=== PATIENT | male | born 1995 | race Caucasian/White ===

== ENCOUNTER 2020-07-05 17:19 | Emergency (ER) | payer OTHER ==
[2020-07-05 17:42] VITALS: RESP 18
[2020-07-05] MEDS ORDERED: SODIUM CHLORIDE 0.9% 1,000 ML IV STA (17:51)
[2020-07-05] MEDS ORDERED: ONDANSETRON 4 MG/2 ML VIAL IVP STA (17:52)
[2020-07-05 18:32] LABS: Basophils # (A) 0.1 k/uL (0-0.2); Basophils % (A) 1 %; Eosinophils # (A) 0.3 k/uL (0-0.7); Eosinophils % (A) 2 %; HCT 45.5 % (39.0-53.0); HGB 15.4 gm/dL (13.0-17.5); Lymphocytes # (A) 1.1 k/uL (1.0-4.8); Lymphocytes % (A) 7 %; MCH 28.5 pg (25.0-35.0); MCHC 33.9 g/dL (31.0-37.0); Mean Platelet Volume 8.4; Monocytes # (A) 0.9 k/uL (0-1.0); Monocytes % (A) 6 %; Neutrophils # (A) 12.9 k/uL (1.3-7.7); Neutrophils % (A) 84 %; Platelet Count 158 k/uL (150-450); RBC 5.42 m/uL (4.30-5.90); RDW 13.7 % (11.5-15.5); WBC 15.3 k/uL (3.8-10.6)
[2020-07-05] MEDS ORDERED: KETOROLAC 15 MG/ML 1 ML VIAL IVP STA (18:32)
--- NOTE | 2020-07-05 18:36 | ED ---
Abdominal Pain HPI - General Chief Complaint: Abdominal Pain Stated Complaint: abd pain Time Seen by Provider: 07/05/20 17:51 Source: patient Mode of arrival: ambulatory Limitations: no limitations - History of Present Illness Initial Comments: Patient is 25-year-old male presenting to the emergency department with a chief complaint of abdominal pain. Patient reports 2 days ago he ate some "raw chicken" from Dr. Tariff And developed epigastric pain. Patient states most the pain is located between the epigastric and the umbilicus. States it "feels like the muscle is tight". Patient reports he had nausea with multiple episodes of nonbilious and nonbloody vomiting. Denies any diarrhea. Denies any night sweats fevers or chills. Denies any chest pain or shortness of breath. - Related Data Previous Rx's Medication Instructions Recorded Pantoprazole Sodium [Protonix] 40 mg PO DAILY #10 tablet. 07/05/20 Allergies Allergy/AdvReac Type Severity Reaction Status Date / Time prednisone Allergy Unknown Verified 07/05/20 17:42 Review of Systems ROS Statement: Those systems with pertinent positive or pertinent negative responses have been documented in the HPI. ROS Other: All systems not noted in ROS Statement are negative. Past Medical History Past Medical History: No Reported History History of Any Multi-Drug Resistant Organisms: None Reported Past Surgical History: Orthopedic Surgery Additional Past Surgical History / Comment(s): Left testical removed Past Psychological History: No Psychological Hx Reported Smoking Status: Current every day smoker Past Alcohol Use History: None Reported Past Drug Use History: None Reported General Exam Limitations: no limitations General appearance: alert, in no apparent distress Head exam: Present: atraumatic, normocephalic, normal inspection Eye exam: Present: normal appearance, PERRL, EOMI Pupils: Present: normal accommodation ENT exam: Present: normal exam, normal oropharynx, mucous membranes moist, TM's normal bilaterally, normal external ear exam Neck exam: Present: normal inspection, full ROM. Absent: tenderness Respiratory exam: Present: normal lung sounds bilaterally. Absent: respiratory distress, wheezes, rales Cardiovascular Exam: Present: regular rate, normal rhythm, normal heart sounds GI/Abdominal exam: Present: soft, tenderness (Epigastric abdominal pain.), normal bowel sounds. Absent: distended, guarding, rebound, rigid Extremities exam: Present: normal inspection, full ROM. Absent: tenderness Back exam: Present: normal inspection, full ROM. Absent: tenderness, CVA tenderness (R), CVA tenderness (L) Neurological exam: Present: alert, oriented X3 Psychiatric exam: Present: normal affect, normal mood Skin exam: Present: warm, dry, intact, normal color Course Vital Signs 07/05/20 07/05/20 07/05/20 17:39 18:50 21:02 Temperature 99.1 F 98.1 F Pulse Rate 114 H 104 H 94 Respiratory 18 18 18 Rate Blood Pressure 164/81 134/89 122/86 O2 Sat by Pulse 98 97 98 Oximetry Medical Decision Making - Medical Decision Making Patient is 25-year-old male presenting to the emergency department with a chief complaint of abdominal pain. On initial evaluation, patient does have epigastr ic abdominal tenderness. CBC reveals leukocytosis. CMP and UA are unremarkable. CT of abdomen and pelvis reveals wall thickening and fat stranding and edema centered along the first and second portions of the duodenum. This can be correlated for duodenitis or peptic ulcer disease. Some fat straining is also noted around the pancreas which would indicate acute interstitial pancreatitis isn't alternate correlation. Clinically, this does not correlate as well as the lipase levels do not indicate pancreatitis. Patient is not a heavy drinker. Patient started on analgesics, IV fluids, antiemetics and Protonix. Patient will be discharged with Protonix and advised to follow with a GI specialist. Strict return parameters were thoroughly discussed with patient was understanding and agreeable. Case discussed with physician. - Lab Data Result diagrams: 07/05/20 18:14 07/05/20 18:14 Lab Results 07/05/20 07/05/20 07/05/20 Range/Units 18:14 18:14 18:44 WBC 15.3 H (3.8-10.6) k/uL RBC 5.42 (4.30-5.90) m/uL Hgb 15.4 (13.0-17.5) gm/dL Hct 45.5 (39.0-53.0) % MCV 84.0 (80.0-100.0) fL MCH 28.5 (25.0-35.0) pg MCHC 33.9 (31.0-37.0) g/dL RDW 13.7 (11.5-15.5) % Plt Count 158 (150-450) k/uL Neutrophils % 84 % Lymphocytes % 7 % Monocytes % 6 % Eosinophils % 2 % Basophils % 1 % Neutrophils # 12.9 H (1.3-7.7) k/uL Lymphocytes # 1.1 (1.0-4.8) k/uL Monocytes # 0.9 (0-1.0) k/uL Eosinophils # 0.3 (0-0.7) k/uL Basophils # 0.1 (0-0.2) k/uL Sodium 136 L (137-145) mmol/L Potassium 4.5 (3.5-5.1) mmol/L Chloride 102 (98-107) mmol/L Carbon Dioxide 24 (22-30) mmol/L Anion Gap 10 mmol/L BUN 9 (9-20) mg/dL Creatinine 0.81 (0.66-1.25) mg/dL Est GFR (CKD-EPI)AfAm >90 (>60 ml/min/1.73 sqM) Est GFR (CKD-EPI)NonAf >90 (>60 ml/min/1.73 sqM) Glucose 191 H (74-99) mg/dL Calcium 9.7 (8.4-10.2) mg/dL Total Bilirubin 1.2 (0.2-1.3) mg/dL AST 54 (17-59) U/L ALT 50 H (4-49) U/L Alkaline Phosphatase 85 (38-126) U/L Total Protein 7.8 (6.3-8.2) g/dL Albumin 4.4 (3.5-5.0) g/dL Lipase 300 (23-300) U/L Urine Color Yellow Urine Appearance Clear (Clear) Urine pH 5.5 (5.0-8.0) Ur Specific [place] 1.015 (1.001-1.035) Urine Protein Trace H (Negative) Urine Glucose (UA) Negative (Negative) Urine Ketones Negative (Negative) Urine Blood Negative (Negative) Urine Nitrite Negative (Negative) Urine Bilirubin Negative (Negative) Urine Urobilinogen <2.0 (<2.0) mg/dL Ur Leukocyte Esterase Negative (Negative) Disposition Clinical Impression: Duodenitis, Abdominal pain Disposition: HOME SELF-CARE Condition: Stable Instructions (If sedation given, give patient instructions): Peptic Ulcer (ED), Abdominal Pain (ED) Additional Instructions: Follow-up with a GI specialist. Take prescribed medication as directed. Do not drink alcohol, coffee, any acidic foods. Return to emergency department if symptoms worsen. Do not take ibuprofen. Prescriptions: Pantoprazole Sodium [Protonix] 40 mg PO DAILY #10 tablet.dr Is patient prescribed a controlled substance at d/c from ED?: No Referrals: None,Stated [Primary Care Provider] - 1-2 days Didi Sousa MD [STAFF PHYSICIAN] - 1-2 days Time of Disposition: 20:32
[2020-07-05 18:42] LABS: ALT 50 U/L (4-49); AST 54 U/L (17-59); African American GFR (CKD) >90 (>60 ml/min/1.73 sqM); Albumin 4.4 g/dL (3.5-5.0); Alkaline Phosphatase 85 U/L (38-126); Anion Gap 10 mmol/L; Blood Urea Nitrogen 9 mg/dL (9-20); Calcium 9.7 mg/dL (8.4-10.2); Carbon Dioxide 24 mmol/L (22-30); Chloride 102 mmol/L (98-107); Glucose 191 mg/dL (74-99); Non-African American GFR(CKD) >90 (>60 ml/min/1.73 sqM); Potassium 4.5 mmol/L (3.5-5.1); Sodium 136 mmol/L (137-145); Total Bilirubin 1.2 mg/dL (0.2-1.3); Total Protein 7.8 g/dL (6.3-8.2)
[2020-07-05 18:58] LABS: Appearance,Urine Clear (Clear); Bilirubin,Urine Negative (Negative); Blood,Urine Negative (Negative); Color,Urine Yellow; Glucose,Urine (UA) Negative (Negative); Ketones,Urine Negative (Negative); Leukocyte Esterase,Urine Negative (Negative); Nitrite,Urine Negative (Negative); PH, Urine 5.5 (5.0-8.0); Protein,Urine Trace (Negative); Specific Gravity,Urine 1.015 (1.001-1.035); Urobilinogen,Urine <2.0 mg/dL (<2.0)
--- NOTE | 2020-07-05 19:20 | CT ---
EXAMINATION TYPE: CT abdomen pelvis w con DATE OF EXAM: 07/05/2020 COMPARISON: NONE HISTORY: 25-year-old male with epigastric and abdominal pain TECHNIQUE: Contiguous axial scanning of the abdomen and pelvis following administration of 100 ml Iso antonino 300 IV contrast. Delayed images through the kidneys and coronal/sagittal reconstructions perform ed. CT DLP: 1560.6 mGycm Automated exposure control for dose reduction was used. FINDINGS: LUNG BASES: No significant abnormality is appreciated. LIVER/GB: Liver enlarged measuring 26.6 cm with diffuse low-attenuation. Portal venous system is jerez nt. No biliary ductal dilatation. Gallbladder within normal limits. PANCREAS: Wall thickening and fat stranding centered along the first and second portions of the duode num and some hazy peripancreatic density as well. Stranding tracks down the retroperitoneum. Scattered nonenlarged mesenteric lymph nodes. Adrenal glands, kidneys within normal limits. Spleen enlarged measuring 17.1 cm on coronal series. No dilated small bowel, free fluid, free air. Scattered mild stool. No pericolonic inflammatory change. Appendix not seen. No secondary findings of acute appendicitis. Mild circumferential bladder wall thickening. There seems to be a left testicular prosthesis. Clinically correlate. No abnormal fluid collection in the pelvis or pelvic lymphadenopathy. Bones: Scattered mild degenerative disc disease throughout. IMPRESSION: 1. WALL THICKENING AND SURROUNDING FAT STRANDING AND EDEMA CENTERED ALONG THE FIRST AND SECOND PORTIO NS OF THE DUODENUM. CORRELATE FOR DUODENITIS OR PEPTIC ULCER DISEASE. 2. SOME OF THE FAT STRANDING SURROUNDS PORTIONS OF THE PANCREAS. ACUTE INTERSTITIAL PANCREATITIS WOUL D BE THE ALTERNATIVE CONSIDERATION. INFLAMMATORY EDEMA TRACKS DOWN THE RETROPERITONEUM. NO ABNORMAL F LUID COLLECTION. 3. HEPATOSPLENOMEGALY (LIVER 26.6 CM AND SPLEEN 17.1 CM) ALONG WITH MODERATE TO SEVERE HEPATIC STEATO SIS. 4. CIRCUMFERENTIAL BLADDER WALL THICKENING. CORRELATE FOR CYSTITIS. 5. LEFT TESTICULAR PROSTHESIS.
[2020-07-05] MEDS ORDERED: PANTOPRAZOLE 40 MG/10 ML VIAL IVP STA (20:30)
[2020-07-05] MEDS ORDERED: ACET/COD 300 MG/30 MG STARTER PACK 6 TAB BTL PO STA (20:30)
[2020-07-05 21:04] VITALS: BP 122/86; PULSE 94; TEMP 98.1
== END 2020-07-05 21:03 | disposition home or self-care (01) ==
LOC: EC 17:19
DX: K29.80 Duodenitis without bleeding (principal); D72.829 Elevated white blood cell count, unspecified; F17.200 Nicotine dependence, unspecified, uncomplicated; Z88.8 Allergy status to other drugs, medicaments and biological substances
CPT/HCPCS: 36415; 80053; 83690; 85025; 81003; 74177; 99284; 96374; 96375 ×2; 96361 ×2; J2405; J1885; C9113; Q9967

== ENCOUNTER 2020-07-06 17:44 | Emergency (ER) | payer OTHER ==
[2020-07-06 17:52] VITALS: TEMP 98.2
[2020-07-06] MEDS ORDERED: SODIUM CHLORIDE 0.9% 1,000 ML IV STA (18:34)
[2020-07-06] MEDS ORDERED: ONDANSETRON 4 MG/2 ML VIAL IVP STA (18:34)
[2020-07-06] MEDS ORDERED: HYDROmorphone 0.5 MG/0.5 ML SYRINGE IVP STA ×3 (18:34→21:27)
[2020-07-06 19:02] LABS: Basophils # (A) 0.1 k/uL (0-0.2); Basophils % (A) 1 %; Eosinophils # (A) 0.2 k/uL (0-0.7); Eosinophils % (A) 1 %; HCT 41.3 % (39.0-53.0); HGB 13.7 gm/dL (13.0-17.5); Lymphocytes # (A) 1.3 k/uL (1.0-4.8); Lymphocytes % (A) 9 %; MCH 28.3 pg (25.0-35.0); MCV 85.6 fL (80.0-100.0); Mean Platelet Volume 8.4; Monocytes # (A) 0.9 k/uL (0-1.0); Monocytes % (A) 6 %; Neutrophils # (A) 11.4 k/uL (1.3-7.7); Neutrophils % (A) 81 %; Platelet Count 145 k/uL (150-450); RBC 4.83 m/uL (4.30-5.90); RDW 13.9 % (11.5-15.5); WBC 14.1 k/uL (3.8-10.6)
[2020-07-06 19:08] LABS: Appearance,Urine Cloudy (Clear); Bacteria,Urine Rare /hpf; Bilirubin,Urine Negative (Negative); Blood,Urine Negative (Negative); Color,Urine Yellow; Glucose,Urine (UA) Negative (Negative); Ketones,Urine Negative (Negative); Leukocyte Esterase,Urine Negative (Negative); Mucus,Urine Many /hpf; Nitrite,Urine Negative (Negative); PH, Urine 5.5 (5.0-8.0); Protein,Urine 1+ (Negative); RBC,Urine 1 /hpf (0-5); Specific Gravity,Urine 1.025 (1.001-1.035); Squamous Epithelial Cell,Urine <1 /hpf (0-4); Urobilinogen,Urine <2.0 mg/dL (<2.0); WBC,Urine 7 /hpf (0-5)
[2020-07-06 19:11] LABS: ALT 33 U/L (4-49); AST 40 U/L (17-59); African American GFR (CKD) >90 (>60 ml/min/1.73 sqM); Albumin 3.9 g/dL (3.5-5.0); Alkaline Phosphatase 73 U/L (38-126); Amylase 41 U/L (30-110); Anion Gap 11 mmol/L; Blood Urea Nitrogen 9 mg/dL (9-20); Calcium 9.2 mg/dL (8.4-10.2); Carbon Dioxide 25 mmol/L (22-30); Chloride 101 mmol/L (98-107); Glucose 174 mg/dL (74-99); Non-African American GFR(CKD) >90 (>60 ml/min/1.73 sqM); Potassium 4.1 mmol/L (3.5-5.1); Sodium 137 mmol/L (137-145); Total Protein 6.8 g/dL (6.3-8.2)
--- NOTE | 2020-07-06 19:23 | ED ---
General Adult HPI - General Chief complaint: Abdominal Pain Stated complaint: recheck - abd pain, vomiting Time Seen by Provider: 07/06/20 18:01 Source: patient, RN notes reviewed Mode of arrival: ambulatory Limitations: no limitations - History of Present Illness Initial comments: 25-year-old male with a past medical history peptic ulcer disease presents to the emergency room for upper abdominal pain. Patient reports that he was seen here in the emergency room yesterday. States that he was discharged home with of likely peptic ulcer and felt much better. However a few hours after he got home pain has worsened and has been vomiting since that time. He is unable to keep his pain medications down. He did try to take Zofran and it did not help. States the pain is worse today than yesterday.Patient has no other complaints at this time including shortness of breath, chest pain, nausea or vomiting, headache, or visual changes. - Related Data Previous Rx's Medication Instructions Recorded Pantoprazole Sodium [Protonix] 40 mg PO DAILY #10 tablet. 07/05/20 HYDROcodone/APAP 5-325MG [[place] 1 tab PO Q6HR PRN #6 tab 07/06/20 5-325] Allergies Allergy/AdvReac Type Severity Reaction Status Date / Time prednisone Allergy hyperglycem Verified 07/06/20 17:53 ia Review of Systems ROS Statement: Those systems with pertinent positive or pertinent negative responses have been documented in the HPI. ROS Other: All systems not noted in ROS Statement are negative. Past Medical History Past Medical History: No Reported History Additional Past Medical History / Comment(s): peptic ulcer, History of Any Multi-Drug Resistant Organisms: None Reported Past Surgical History: Orthopedic Surgery Additional Past Surgical History / Comment(s): Left testical removed, Past Psychological History: No Psychological Hx Reported Smoking Status: Current every day smoker Past Alcohol Use History: Occasional Past Drug Use History: None Reported General Exam Limitations: no limitations General appearance: alert, in no apparent distress Head exam: Present: atraumatic, normocephalic, normal inspection Eye exam: Present: normal appearance, PERRL, EOMI. Absent: scleral icterus, conjunctival injection, periorbital swelling ENT exam: Present: normal exam, mucous membranes moist Neck exam: Present: normal inspection, full ROM. Absent: tenderness, meningismus, lymphadenopathy Respiratory exam: Present: normal lung sounds bilaterally. Absent: respiratory distress, wheezes, rales, rhonchi, stridor Cardiovascular Exam: Present: regular rate, normal rhythm, normal heart sounds. Absent: systolic murmur, diastolic murmur, rubs, gallop, clicks GI/Abdominal exam: Present: soft, tenderness (Epigastric and right upper quadrant tenderness), normal bowel sounds. Absent: distended, guarding, rebound, rigid Course Vital Signs 07/06/20 07/06/20 17:49 20:12 Temperature 98.2 F Pulse Rate 115 H 103 H Respiratory 18 16 Rate Blood Pressure 110/63 126/75 O2 Sat by Pulse 96 97 Oximetry Medical Decision Making - Medical Decision Making Vitals are stable. CBC is unremarkable. Leukocytosis is improving. CMP is unremarkable. Lactic acid of 2.5 likely related to dehydration. Glucose of 174 is nonfasting. Urinalysis is unremarkable. Ketones are negative. There is no glucose in the urine. No obvious evidence of infection although culture will be sent. CT abdomen and pelvis with contrast was reviewed from yesterday which did show evidence of duodenitis and peptic ulcer disease. Ultrasound of the right upper quadrant today showed sludge in the gallbladder however no evidence of cholecystitis. X-ray of the abdomen does not show evidence of free air. Patient's pain is controlled with Dilaudid. He did request another dose before discharged home so he could sleep tonight. He did not vomit here in the emergency room. He does have an appointment tomorrow morning with his primary c are physician. If he has any worsening symptoms or fevers he will return here to the emergency room.I discussed this case with attending Dr. Alvarez who agrees with this assessment and treatment plan. - Lab Data Result diagrams: 07/06/20 18:48 07/06/20 18:48 Lab Results 07/06/20 07/06/20 07/06/20 Range/Units 18:48 18:48 18:48 WBC 14.1 H (3.8-10.6) k/uL RBC 4.83 (4.30-5.90) m/uL Hgb 13.7 (13.0-17.5) gm/dL Hct 41.3 (39.0-53.0) % MCV 85.6 (80.0-100.0) fL MCH 28.3 (25.0-35.0) pg MCHC 33.0 (31.0-37.0) g/dL RDW 13.9 (11.5-15.5) % Plt Count 145 L (150-450) k/uL Neutrophils % 81 % Lymphocytes % 9 % Monocytes % 6 % Eosinophils % 1 % Basophils % 1 % Neutrophils # 11.4 H (1.3-7.7) k/uL Lymphocytes # 1.3 (1.0-4.8) k/uL Monocytes # 0.9 (0-1.0) k/uL Eosinophils # 0.2 (0-0.7) k/uL Basophils # 0.1 (0-0.2) k/uL Sodium 137 (137-145) mmol/L Potassium 4.1 (3.5-5.1) mmol/L Chloride 101 (98-107) mmol/L Carbon Dioxide 25 (22-30) mmol/L Anion Gap 11 mmol/L BUN 9 (9-20) mg/dL Creatinine 0.89 (0.66-1.25) mg/dL Est GFR (CKD-EPI)AfAm >90 (>60 ml/min/1.73 sqM) Est GFR (CKD-EPI)NonAf >90 (>60 ml/min/1.73 sqM) Glucose 174 H (74-99) mg/dL Plasma Lactic Acid Dinesh (0.7-2.0) mmol/L Calcium 9.2 (8.4-10.2) mg/dL Total Bilirubin 1.0 (0.2-1.3) mg/dL AST 40 (17-59) U/L ALT 33 (4-49) U/L Alkaline Phosphatase 73 (38-126) U/L Total Protein 6.8 (6.3-8.2) g/dL Albumin 3.9 (3.5-5.0) g/dL Amylase 41 (30-110) U/L Lipase 224 (23-300) U/L Urine Color Yellow Urine Appearance Cloudy (Clear) Urine pH 5.5 (5.0-8.0) Ur Specific [place] 1.025 (1.001-1.035) Urine Protein 1+ H (Negative) Urine Glucose (UA) Negative (Negative) Urine Ketones Negative (Negative) Urine Blood Negative (Negative) Urine Nitrite Negative (Negative) Urine Bilirubin Negative (Negative) Urine Urobilinogen <2.0 (<2.0) mg/dL Ur Leukocyte Esterase Negative (Negative) Urine RBC 1 (0-5) /hpf Urine WBC 7 H (0-5) /hpf Ur Squamous Epith Cells <1 (0-4) /hpf Urine Bacteria Rare H (None) /hpf Urine Mucus Many H (None) /hpf 07/06/20 Range/Units 18:48 WBC (3.8-10.6) k/uL RBC (4.30-5.90) m/uL Hgb (13.0-17.5) gm/dL Hct (39.0-53.0) % MCV (80.0-100.0) fL MCH (25.0-35.0) pg MCHC (31.0-37.0) g/dL RDW (11.5-15.5) % Plt Count (150-450) k/uL Neutrophils % % Lymphocytes % % Monocytes % % Eosinophils % % Basophils % % Neutrophils # (1.3-7.7) k/uL Lymphocytes # (1.0-4.8) k/uL Monocytes # (0-1.0) k/uL Eosinophils # (0-0.7) k/uL Basophils # (0-0.2) k/uL Sodium (137-145) mmol/L Potassium (3.5-5.1) mmol/L Chloride (98-107) mmol/L Carbon Dioxide (22-30) mmol/L Anion Gap mmol/L BUN (9-20) mg/dL Creatinine (0.66-1.25) mg/dL Est GFR (CKD-EPI)AfAm (>60 ml/min/1.73 sqM) Est GFR (CKD-EPI)NonAf (>60 ml/min/1.73 sqM) Glucose (74-99) mg/dL Plasma Lactic Acid Dinesh 2.5 H* (0.7-2.0) mmol/L Calcium (8.4-10.2) mg/dL Total Bilirubin (0.2-1.3) mg/dL AST (17-59) U/L ALT (4-49) U/L Alkaline Phosphatase (38-126) U/L Total Protein (6.3-8.2) g/dL Albumin (3.5-5.0) g/dL Amylase (30-110) U/L Lipase (23-300) U/L Urine Color Urine Appearance (Clear) Urine pH (5.0-8.0) Ur Specific [place] (1.001-1.035) Urine Protein (Negative) Urine Glucose (UA) (Negative) Urine Ketones (Negative) Urine Blood (Negative) Urine Nitrite (Negative) Urine Bilirubin (Negative) Urine Urobilinogen (<2.0) mg/dL Ur Leukocyte Esterase (Negative) Urine RBC (0-5) /hpf Urine WBC (0-5) /hpf Ur Squamous Epith Cells (0-4) /hpf Urine Bacteria (None) /hpf Urine Mucus (None) /hpf Disposition Clinical Impression: Duodenitis, Abdominal pain Disposition: HOME SELF-CARE Condition: Good Instructions (If sedation given, give patient instructions): Abdominal Pain (ED) Additional Instructions: Please continue to take Protonix. Attend your appointment tomorrow morning. Take [place] if pain is severe but do not drive or operate machinery while taking this. Return to the emergency room for any worsening symptoms. Prescriptions: HYDROcodone/APAP 5-325MG [[place] 5-325] 1 tab PO Q6HR PRN #6 tab PRN Reason: Pain Is patient prescribed a controlled substance at d/c from ED?: Yes When asked, does pt state using other controlled substances?: No If prescribed controlled substance>3 days was MAPS reviewed?: Prescribed <3 Days If opioid is for acute pain is fill amount 7 days or less?: Yes If Rx opioid, was Start Talking consent form obtained?: Yes Referrals: Didi Sousa MD [STAFF PHYSICIAN] - 1-2 days Time of Disposition: 21:23
--- NOTE | 2020-07-06 19:53 | XR ---
EXAMINATION TYPE: XR KUB DATE OF EXAM: 07/06/2020 COMPARISON: None INDICATION: Pain epigastric x3 days TECHNIQUE: Single view abdomen upright views the abdomen FINDINGS: Is a normal colonic bowel gas pattern. No free air is evident. No differential air-fluid levels are p resent Psoas margins are normal. Borderline hepatomegaly may be present. IMPRESSION: 1. Correlate for hepatomegaly.
--- NOTE | 2020-07-06 20:52 | US ---
EXAMINATION TYPE: US abdomen limited DATE OF EXAM: 07/06/2020 COMPARISON: CT CLINICAL HISTORY: ruq. Abdominal pain x 3 days. Vomiting. EXAM MEASUREMENTS: Liver Length: 26.0 cm Gallbladder Wall: 0.2 cm CBD: 0.39 cm Right Kidney: 11.7 x 6.1 x 4.6 cm Pancreas: Not well seen due to overlying bowel gas. Liver: Appears to be enlarged and to have an increased echogenicity. Increased attenuation, difficul t to penetrate. Hypoechoic area seen adjacent to the gallbladder (suggestive of focal fatty sparing?) , measurin.4 x 1.1 x 0.9 cm. Gallbladder: Measures 3.6 cm in width. Minimal internal echoes seen versus artifact. Evidence for sonographic Gallardo's sign: No CBD: Appears wnl Right Kidney: No hydronephrosis or masses seen IMPRESSION: 1. May be some sludge within the gallbladder. 2. Fatty infiltration liver
[2020-07-06 21:40] VITALS: BP 144/87; PULSE 91; RESP 18
== END 2020-07-06 21:40 | disposition home or self-care (01) ==
LOC: EC 17:44
DX: K29.80 Duodenitis without bleeding (principal); K27.9 Peptic ulcer, site unspecified, unspecified as acute or chronic, without hemorrhage or perforation; D72.829 Elevated white blood cell count, unspecified; F17.200 Nicotine dependence, unspecified, uncomplicated; Z88.8 Allergy status to other drugs, medicaments and biological substances
CPT/HCPCS: 36415; 80053; 82150; 83605; 83690; 85025; 81001; 74018; 76705; 99284; 96374; 96375; 96376 ×2; 96361; J2405; J1170

== ENCOUNTER 2021-02-28 08:46 | Inpatient (IN) | payer BC, OTHER ==
[2021-02-28] MEDS ORDERED: MORPHINE SULFATE 4 MG/ML SYRINGE IV STA (09:01)
[2021-02-28] MEDS ORDERED: PANTOPRAZOLE 40 MG/10 ML VIAL IVP STA (09:01)
[2021-02-28] MEDS ORDERED: SODIUM CHLORIDE 0.9% 1,000 ML IV STA (09:01)
--- NOTE | 2021-02-28 09:03 | ED ---
General Adult HPI - General Chief complaint: Abdominal Pain Stated complaint: Abd pain Time Seen by Provider: 02/28/21 08:52 Source: patient, RN notes reviewed, old records reviewed Mode of arrival: ambulatory Limitations: no limitations - History of Present Illness Initial comments: 25-year-old male presenting with epigastric abdominal pain. Patient's pain began this morning prior to arrival. He's had some nausea but no vomiting. He denies any change in his bowels. No diarrhea. No constipation. No dysuria or hematuria. No flank pain. Pain is predominantly epigastric and left upper quadrant. He states he had similar episode to this in the past and was diagnosed with peptic ulcer disease. He did not have GI follow-up at that time. - Related Data Home Medications Medication Instructions Recorded Confirmed No Known Home Medications 02/28/21 02/28/21 Allergies Allergy/AdvReac Type Severity Reaction Status Date / Time prednisone AdvReac hyperglycem Verified 02/28/21 12:19 ia Review of Systems ROS Statement: Those systems with pertinent positive or pertinent negative responses have been documented in the HPI. ROS Other: All systems not noted in ROS Statement are negative. Past Medical History Past Medical History: No Reported History Additional Past Medical History / Comment(s): peptic ulcer, History of Any Multi-Drug Resistant Organisms: None Reported Past Surgical History: Orthopedic Surgery Additional Past Surgical History / Comment(s): Left testical removed, Past Psychological History: No Psychological Hx Reported Smoking Status: Current every day smoker Past Alcohol Use History: Occasional Past Drug Use History: None Reported General Exam Limitations: no limitations General appearance: alert, in no apparent distress Head exam: Present: atraumatic, normocephalic Eye exam: Present: normal appearance, PERRL ENT exam: Present: normal exam Neck exam: Present: normal inspection. Absent: tenderness, meningismus Respiratory exam: Present: normal lung sounds bilaterally. Absent: respiratory distress, wheezes Cardiovascular Exam: Present: normal rhythm, tachycardia GI/Abdominal exam: Present: soft, tenderness. Absent: distended, guarding Extremities exam: Present: normal inspection, normal capillary refill. Absent: pedal edema, calf tenderness Neurological exam: Present: alert, oriented X3, CN II-XII intact. Absent: motor sensory deficit Psychiatric exam: Present: normal affect, normal mood Skin exam: Present: warm, dry, intact. Absent: cyanosis, diaphoretic Course Vital Signs 05/03/21 05/03/21 05/03/21 08:47 10:46 11:44 Temperature 97.8 F 99.0 F Pulse Rate 111 H 96 97 Respiratory 18 18 22 Rate Blood Pressure 161/123 165/112 166/96 O2 Sat by Pulse 97 97 95 Oximetry Medical Decision Making - Medical Decision Making 25-year-old male presenting with abdominal pain, epigastric pain. CBC within normal limits, he has a hyponatremia which is likely pseudohyponatremia secondary to elevated glucose. He has a elevated blood sugar 583 with no history of diabetes. Has a lactic acid of 3.8. His amylase is elevated and lipase is unable to be obtained at this time. He is given IV fluid, symptomatic control. CT is performed which shows an acute pancreatitis. Patient will be kept nothing by mouth. He will be admitted for IV hydration and symptom control. Case discussed with Dr. Mendez will admit. - Lab Data Result diagrams: 02/28/21 09:09 02/28/21 09:09 Lab Results 02/28/21 02/28/21 02/28/21 Range/Units 09:09 09:09 09:09 WBC 6.5 (3.8-10.6) k/uL RBC 5.56 (4.30-5.90) m/uL Hgb 16.1 (13.0-17.5) gm/dL Hct 45.8 (39.0-53.0) % MCV 82.3 (80.0-100.0) fL MCH 28.8 (25.0-35.0) pg MCHC 35.2 (31.0-37.0) g/dL RDW 14.7 (11.5-15.5) % Plt Count 160 (150-450) k/uL MPV 8.6 Neutrophils % 70 % Lymphocytes % 13 % Monocytes % 7 % Eosinophils % 6 % Basophils % 1 % Neutrophils # 4.5 (1.3-7.7) k/uL Lymphocytes # 0.9 L (1.0-4.8) k/uL Monocytes # 0.5 (0-1.0) k/uL Eosinophils # 0.4 (0-0.7) k/uL Basophils # 0.1 (0-0.2) k/uL Poikilocytosis Slight Sodium 127 L (137-145) mmol/L Potassium 5.1 (3.5-5.1) mmol/L Chloride 96 L (98-107) mmol/L Carbon Dioxide 17 L (22-30) mmol/L Anion Gap 14 mmol/L BUN 14 (9-20) mg/dL Creatinine 0.77 (0.66-1.25) mg/dL Est GFR (CKD-EPI)AfAm >90 (>60 ml/min/1.73 sqM) Est GFR (CKD-EPI)NonAf >90 (>60 ml/min/1.73 sqM) Glucose 583 H* (74-99) mg/dL Lactic Ac Sepsis Rflx Plasma Lactic Acid Dinesh (0.7-2.0) mmol/L Calcium 9.4 (8.4-10.2) mg/dL Total Bilirubin 0.8 (0.2-1.3) mg/dL AST 69 H (17-59) U/L ALT 39 (4-49) U/L Alkaline Phosphatase 107 (38-126) U/L Troponin I (0.000-0.034) ng/mL Total Protein 7.8 (6.3-8.2) g/dL Albumin 4.6 (3.5-5.0) g/dL Amylase 289 H (30-110) U/L Lipase Cancelled Urine Color Yellow Urine Appearance Clear (Clear) Urine pH 6.0 (5.0-8.0) Ur Specific [place] 1.036 H (1.001-1.035) Urine Protein 3+ H (Negative) Urine Glucose (UA) 4+ H (Negative) Urine Ketones Negative (Negative) Urine Blood Trace H (Negative) Urine Nitrite Negative (Negative) Urine Bilirubin Negative (Negative) Urine Urobilinogen <2.0 (<2.0) mg/dL Ur Leukocyte Esterase Negative (Negative) Urine RBC 1 (0-5) /hpf Urine WBC 2 (0-5) /hpf Ur Squamous Epith Cells <1 (0-4) /hpf Hyaline Casts 22 H (0-2) /lpf Urine Mucus Rare H (None) /hpf 02/28/21 02/28/21 02/28/21 Range/Units 09:09 09:09 09:55 WBC (3.8-10.6) k/uL RBC (4.30-5.90) m/uL Hgb (13.0-17.5) gm/dL Hct (39.0-53.0) % MCV (80.0-100.0) fL MCH (25.0-35.0) pg MCHC (31.0-37.0) g/dL RDW (11.5-15.5) % Plt Count (150-450) k/uL MPV Neutrophils % % Lymphocytes % % Monocytes % % Eosinophils % % Basophils % % Neutrophils # (1.3-7.7) k/uL Lymphocytes # (1.0-4.8) k/uL Monocytes # (0-1.0) k/uL Eosinophils # (0-0.7) k/uL Basophils # (0-0.2) k/uL Poikilocytosis Sodium (137-145) mmol/L Potassium (3.5-5.1) mmol/L Chloride (98-107) mmol/L Carbon Dioxide (22-30) mmol/L Anion Gap mmol/L BUN (9-20) mg/dL Creatinine (0.66-1.25) mg/dL Est GFR (CKD-EPI)AfAm (>60 ml/min/1.73 sqM) Est GFR (CKD-EPI)NonAf (>60 ml/min/1.73 sqM) Glucose (74-99) mg/dL Lactic Ac Sepsis Rflx Y Plasma Lactic Acid Dinesh 3.8 H* (0.7-2.0) mmol/L Calcium (8.4-10.2) mg/dL Total Bilirubin (0.2-1.3) mg/dL AST (17-59) U/L ALT (4-49) U/L Alkaline Phosphatase (38-126) U/L Troponin I <0.012 (0.000-0.034) ng/mL Total Protein (6.3-8.2) g/dL Albumin (3.5-5.0) g/dL Amylase (30-110) U/L Lipase Urine Color Urine Appearance (Clear) Urine pH (5.0-8.0) Ur Specific [place] (1.001-1.035) Urine Protein (Negative) Urine Glucose (UA) (Negative) Urine Ketones (Negative) Urine Blood (Negative) Urine Nitrite (Negative) Urine Bilirubin (Negative) Urine Urobilinogen (<2.0) mg/dL Ur Leukocyte Esterase (Negative) Urine RBC (0-5) /hpf Urine WBC (0-5) /hpf Ur Squamous Epith Cells (0-4) /hpf Hyaline Casts (0-2) /lpf Urine Mucus (None) /hpf 02/28/21 Range/Units 12:25 WBC (3.8-10.6) k/uL RBC (4.30-5.90) m/uL Hgb (13.0-17.5) gm/dL Hct (39.0-53.0) % MCV (80.0-100.0) fL MCH (25.0-35.0) pg MCHC (31.0-37.0) g/dL RDW (11.5-15.5) % Plt Count (150-450) k/uL MPV Neutrophils % % Lymphocytes % % Monocytes % % Eosinophils % % Basophils % % Neutrophils # (1.3-7.7) k/uL Lymphocytes # (1.0-4.8) k/uL Monocytes # (0-1.0) k/uL Eosinophils # (0-0.7) k/uL Basophils # (0-0.2) k/uL Poikilocytosis Sodium (137-145) mmol/L Potassium (3.5-5.1) mmol/L Chloride (98-107) mmol/L Carbon Dioxide (22-30) mmol/L Anion Gap mmol/L BUN (9-20) mg/dL Creatinine (0.66-1.25) mg/dL Est GFR (CKD-EPI)AfAm (>60 ml/min/1.73 sqM) Est GFR (CKD-EPI)NonAf (>60 ml/min/1.73 sqM) Glucose (74-99) mg/dL Lactic Ac Sepsis Rflx Plasma Lactic Acid Dinesh 1.5 (0.7-2.0) mmol/L Calcium (8.4-10.2) mg/dL Total Bilirubin (0.2-1.3) mg/dL AST (17-59) U/L ALT (4-49) U/L Alkaline Phosphatase (38-126) U/L Troponin I (0.000-0.034) ng/mL Total Protein (6.3-8.2) g/dL Albumin (3.5-5.0) g/dL Amylase (30-110) U/L Lipase Urine Color Urine Appearance (Clear) Urine pH (5.0-8.0) Ur Specific [place] (1.001-1.035) Urine Protein (Negative) Urine Glucose (UA) (Negative) Urine Ketones (Negative) Urine Blood (Negative) Urine Nitrite (Negative) Urine Bilirubin (Negative) Urine Urobilinogen (<2.0) mg/dL Ur Leukocyte Esterase (Negative) Urine RBC (0-5) /hpf Urine WBC (0-5) /hpf Ur Squamous Epith Cells (0-4) /hpf Hyaline Casts (0-2) /lpf Urine Mucus (None) /hpf Disposition Clinical Impression: Pancreatitis, Abdominal pain, Hyperglycemia Disposition: ADMITTED IP TO THIS [facility] Condition: Stable Is patient prescribed a controlled substance at d/c from ED?: No Referrals: Cristino Telles MD [Primary Care Provider] - 1-2 days Decision to Admit Reason: Admit from EC Decision Date: 02/28/21 Decision Time: 13:04
[2021-02-28 09:30] LABS: Appearance,Urine Clear (Clear); Bilirubin,Urine Negative (Negative); Blood,Urine Trace (Negative); Color,Urine Yellow; Glucose,Urine (UA) 4+ (Negative); Hyaline Casts,Urine 22 /lpf (0-2); Ketones,Urine Negative (Negative); Leukocyte Esterase,Urine Negative (Negative); Mucus,Urine Rare /hpf; Nitrite,Urine Negative (Negative); Protein,Urine 3+ (Negative); RBC,Urine 1 /hpf (0-5); Specific Gravity,Urine 1.036 (1.001-1.035); Squamous Epithelial Cell,Urine <1 /hpf (0-4); Urobilinogen,Urine <2.0 mg/dL (<2.0); WBC,Urine 2 /hpf (0-5)
[2021-02-28 09:36] LABS: Basophils # (A) 0.1 k/uL (0-0.2); Basophils % (A) 1 %; Eosinophils # (A) 0.4 k/uL (0-0.7); Eosinophils % (A) 6 %; HCT 45.8 % (39.0-53.0); Lymphocytes # (A) 0.9 k/uL (1.0-4.8); Lymphocytes % (A) 13 %; MCV 82.3 fL (80.0-100.0); Mean Platelet Volume 8.6; Monocytes # (A) 0.5 k/uL (0-1.0); Monocytes % (A) 7 %; Neutrophils # (A) 4.5 k/uL (1.3-7.7); Neutrophils % (A) 70 %; Platelet Count 160 k/uL (150-450); Poikilocytosis Slight; RBC 5.56 m/uL (4.30-5.90); RDW 14.7 % (11.5-15.5); WBC 6.5 k/uL (3.8-10.6)
[2021-02-28 09:37] LABS: MCH 28.8 pg (25.0-35.0)
[2021-02-28 09:38] LABS: MCHC 35.2 g/dL (31.0-37.0)
[2021-02-28 09:39] LABS: HGB 16.1 gm/dL (13.0-17.5)
[2021-02-28] MEDS ORDERED: ONDANSETRON 4 MG/2 ML VIAL IVP STA (09:43)
--- NOTE | 2021-02-28 09:52 | XR ---
EXAMINATION TYPE: XR KUB DATE OF EXAM: 02/28/2021 9:41 AM CLINICAL HISTORY: Abdominal pain. Left lower abdominal pain. TECHNIQUE: Upright images of the abdomen and pelvis were obtained COMPARISON: 07/06/2020. FINDINGS: There is a nonspecific bowel gas pattern. There is a paucity of small bowel gas. No pneumop eritoneum or abnormal calcification appreciated. The lung bases are clear. The osseous structures are intact. Incomplete sacralization of L5 on the left. IMPRESSION: Nonspecific bowel gas pattern. Paucity of small bowel gas.
[2021-02-28 09:57] LABS: Chloride 96 mmol/L (98-107); Potassium 5.1 mmol/L (3.5-5.1); Sodium 127 mmol/L (137-145)
[2021-02-28] MEDS ORDERED: HYDROmorphone 0.5 MG/0.5 ML SYRINGE IVP STA (10:08)
[2021-02-28 10:33] LABS: African American GFR (CKD) >90 (>60 ml/min/1.73 sqM); Anion Gap 14 mmol/L; Non-African American GFR(CKD) >90 (>60 ml/min/1.73 sqM)
[2021-02-28 10:34] LABS: ALT 39 U/L (4-49); AST 69 U/L (17-59); Albumin 4.6 g/dL (3.5-5.0); Blood Urea Nitrogen 14 mg/dL (9-20); Calcium 9.4 mg/dL (8.4-10.2); Carbon Dioxide 17 mmol/L (22-30); Total Bilirubin 0.8 mg/dL (0.2-1.3); Total Protein 7.8 g/dL (6.3-8.2)
[2021-02-28 10:35] LABS: Alkaline Phosphatase 107 U/L (38-126); Amylase 289 U/L (30-110)
[2021-02-28 10:36] LABS: Glucose 583 mg/dL (74-99)
[2021-02-28] MEDS ORDERED: HYDROmorphone 1 MG/ML 1 ML SYRINGE IVP STA (10:51)
[2021-02-28] MEDS ORDERED: SODIUM CHLORIDE 0.9% 1,000 ML IV ONE (10:51)
[2021-02-28] MEDS ORDERED: SODIUM CHLORIDE 0.9% 1,000 ML IV SCH ×2 (11:00→23:30)
[2021-02-28] MEDS ORDERED: KETOROLAC 15 MG/ML 1 ML VIAL IVP STA (12:26)
[2021-02-28] MEDS ORDERED: MORPHINE SULFATE 4 MG/ML SYRINGE IVP STA (12:27)
[2021-02-28] MEDS ORDERED: NALOXONE 0.4 MG/ML 1 ML VIAL IV PRN (12:47)
[2021-02-28] MEDS ORDERED: ONDANSETRON 4 MG/2 ML VIAL IVP PRN (12:47)
[2021-02-28] MEDS ORDERED: HYDROmorphone 0.5 MG/0.5 ML SYRINGE IVP PRN (12:47)
[2021-02-28] MEDS ORDERED: HYDROmorphone 1 MG/ML 1 ML SYRINGE IVP PRN (12:47)
[2021-02-28] MEDS ORDERED: HYDROmorphone 1 MG/ML 1 ML SYRINGE IM STA (12:59)
--- NOTE | 2021-02-28 13:00 | CT ---
EXAMINATION TYPE: CT abdomen pelvis w con DATE OF EXAM: 02/28/2021 COMPARISON: CT July 05, 2020 HISTORY: Abdominal and particular epigastric pain with nausea CT DLP: 1522 mGycm, Automated Exposure Control for Dose Reduction was Utilized. CONTRAST: CT scan of the abdomen and pelvis is performed without oral and with IV Contrast, patient injected wi th 100 mL of Isovue 300. FINDINGS: LUNG BASES: No significant abnormality is appreciated. Liver/GB: Stable hepatomegaly and heterogeneous hypodense appearance of liver consistent with diffuse fatty infiltration and/or underlying hepatocellular disease. PANCREAS: Mild to moderate haziness and fat stranding along the head and body of pancreas into uncina te process. No areas of nonenhancement. No well-formed fluid collection. SPLEEN: Persistent splenomegaly at 17.6 cm long axis fat/24. ADRENALS: No significant abnormality is seen. KIDNEYS: Symmetric cortical medullary uptake and excretion without hydronephrosis seen bilaterally. BOWEL: No significant abnormality is seen. PROSTATE/SEMINAL VESICLES: No gross abnormality seen. LYMPH NODES: No greater than 1cm abdominal or pelvic lymph nodes are appreciated. OSSEOUS STRUCTURES: Sacralized left L5 segment redemonstrated. OTHER: Left testicular prosthesis axial image 101 redemonstrated. IMPRESSION: CT findings consistent with acute pancreatitis redemonstrated. No areas of nonenhancement or well formed fluid collection. Hepatosplenomegaly and underlying marked hepatic fatty infiltration redemonstrated.
--- NOTE | 2021-02-28 14:59 | US ---
EXAMINATION TYPE: US gallbladder DATE OF EXAM: 02/28/2021 COMPARISON: Same day CT abdomen pelvis. Limited abdominal ultrasound 07/06/2020. CLINICAL HISTORY: gall stones. Pain. EXAM MEASUREMENTS: Liver Length: 24.5 cm Gallbladder Wall: 0.2 cm CBD: 0.4 cm Right Kidney: 12.1 x 5.9 x 4.9 cm Pancreas: Obscured by bowel gas. Liver: Significantly increased echogenicity and coarsening of the echotexture. There is poor posteri or beam penetration and nonvisualization of the posterior liver. Enlarged in size. Gallbladder: Normal. Balance Truer reports negative sonographic Gallardo sign. CBD: Normal. Right Kidney: No hydronephrosis. IMPRESSION: 1. Normal gallbladder. There is no cholelithiasis, acute cholecystitis, or common bile duct dilatatio n. 2. Markedly fatty liver.
[2021-02-28] MEDS: HYDROmorphone 1 MG/ML 1 ML SYRINGE IVP PRN ×4 (15:26→22:28)
[2021-02-28 15:52] LABS: HDL Cholesterol 14 mg/dL (40-60)
[2021-02-28 15:59] LABS: Cholesterol 359 mg/dL (<200)
--- NOTE | 2021-02-28 16:00 | P.HPIM ---
History of Present Illness 25-year-old male with known his known history of alcohol was given with compensative severe and epigastric abdominal pain with nausea vomiting found to have pancreatitis and the CT of the abdomen. Lab was unable to run type is because of highly elevated lipids in the blood. Patient's amylase was elevated. Patient's symptoms started today morning sharp 10/10 in severity nonradiating. Patient had peptic ulcer disease in the past. Gallbladder ultrasound did not show any gallstones. Patient had multiple episodes of nausea vomiting found to have lactic acidosis and severe hyponatremia from her nausea vomiting and dehydration. Review of Systems REVIEW OF SYSTEMS: CONSTITUTIONAL: No fever, no malaise, no fatigue. HEENT: No recent visual problems or hearing problems. Denied any sore throat. CARDIOVASCULAR: No chest pain, orthopnea, PND, no palpitations, no syncope. PULMONARY: No shortness of breath, no cough, no hemoptysis. GASTROINTESTINAL: As mentioned in HPI NEUROLOGICAL: No headaches, no weakness, no numbness. HEMATOLOGICAL: Denies any bleeding or petechiae. GENITOURINARY: Denies any burning micturition, frequency, or urgency. MUSCULOSKELETAL/RHEUMATOLOGICAL: Denies any joint pain, swelling, or any muscle pain. ENDOCRINE: Denies any polyuria or polydipsia. The rest of the 14-point review of systems is negative. Past Medical History Past Medical History: No Reported History Additional Past Medical History / Comment(s): peptic ulcer, History of Any Multi-Drug Resistant Organisms: None Reported Past Surgical History: Orthopedic Surgery Additional Past Surgical History / Comment(s): Left testical removed, Past Psychological History: No Psychological Hx Reported Smoking Status: Current every day smoker Past Alcohol Use History: Occasional Past Drug Use History: None Reported Medications and Allergies Home Medications Medication Instructions Recorded Confirmed Type No Known Home Medications 02/28/21 02/28/21 History Allergies Allergy/AdvReac Type Severity Reaction Status Date / Time prednisone AdvReac hyperglycem Verified 02/28/21 12:19 ia Physical Exam Vitals: Vital Signs Temp Pulse Resp BP Pulse Ox 02/28/21 15:30 99.0 F 111 H 19 156/98 84 L 02/28/21 11:44 99.0 F 97 22 166/96 95 02/28/21 10:46 96 18 165/112 97 02/28/21 08:47 97.8 F 111 H 18 161/123 97 Intake and Output 02/28/21 02/28/21 02/28/21 06:59 14:59 22:59 Other: Weight 98.43 kg PHYSICAL EXAMINATION: GENERAL: The patient is alert and oriented x3, not in any acute distress. Well developed, well nourished. HEENT: Pupils are round and equally reacting to light. EOMI. No scleral icterus. No conjunctival pallor. Normocephalic, atraumatic. No pharyngeal erythema. No thyromegaly. CARDIOVASCULAR: S1 and S2 present. No murmurs, rubs, or gallops. PULMONARY: Chest is clear to auscultation, no wheezing or crackles. ABDOMEN: Severe epigastric abdominal tenderness, nondistended, normoactive bowel sounds. No palpable organomegaly. MUSCULOSKELETAL: No joint swelling or deformity. EXTREMITIES: No cyanosis, clubbing, or pedal edema. NEUROLOGICAL: Gross neurological examination did not reveal any focal deficits. SKIN: No rashes. Results CBC & Chem 7: 02/28/21 09:09 02/28/21 09:09 Labs: Abnormal Lab Results - Last 24 Hours (Table) 02/28/21 02/28/21 02/28/21 Range/Units 09:09 09:09 09:09 Lymphocytes # 0.9 L (1.0-4.8) k/uL Sodium 127 L (137-145) mmol/L Chloride 96 L (98-107) mmol/L Carbon Dioxide 17 L (22-30) mmol/L Glucose 583 H* (74-99) mg/dL Plasma Lactic Acid Dinesh (0.7-2.0) mmol/L AST 69 H (17-59) U/L Amylase 289 H (30-110) U/L Ur Specific [place] 1.036 H (1.001-1.035) Urine Protein 3+ H (Negative) Urine Glucose (UA) 4+ H (Negative) Urine Blood Trace H (Negative) Hyaline Casts 22 H (0-2) /lpf Urine Mucus Rare H (None) /hpf 02/28/21 Range/Units 09:09 Lymphocytes # (1.0-4.8) k/uL Sodium (137-145) mmol/L Chloride (98-107) mmol/L Carbon Dioxide (22-30) mmol/L Glucose (74-99) mg/dL Plasma Lactic Acid Dinesh 3.8 H* (0.7-2.0) mmol/L AST (17-59) U/L Amylase (30-110) U/L Ur Specific [place] (1.001-1.035) Urine Protein (Negative) Urine Glucose (UA) (Negative) Urine Blood (Negative) Hyaline Casts (0-2) /lpf Urine Mucus (None) /hpf Assessment and Plan Plan: -Acute pancreatitis: Most probably secondary to right lipidemia will obtain lipid panel. Patient is not alcoholic patient doesn't have any gallstones patient will remain nothing by mouth continue with IV fluids continue with Dilaudid for the and the Zofran for nausea -Highly elevated blood sugars patient will be started on sliding scale insulin will obtain hemoglobin A1c -Lactic acidosis secondary to severe dehydration and plan-hypovolemic hy ponatremia patient will be started on IV fluids -Anion gap metabolic acidosis secondary to activity acidosis no ketosis at this time -Hypovolemic hyponatremia: Continue with IV fluids -DVT prophylaxis: Lovenox GI prophylaxis Protonix
[2021-02-28 16:15] LABS: Triglycerides 4970 mg/dL (<150)
[2021-02-28] MEDS: ONDANSETRON 4 MG/2 ML VIAL IVP PRN (16:41)
[2021-02-28 16:50] LABS: Glucose,Whole Blood 381 mg/dL (75-99)
[2021-02-28] MEDS ORDERED: PROCHLORPERAZINE INJ 10 MG/2 ML VIAL IVP PRN (17:18)
[2021-02-28] MEDS: INSULIN ASPART (NovoLOG) 100 UNIT/ML VIAL SQ SCH ×2 (17:25→22:27)
[2021-02-28] MEDS ORDERED: INSULIN ASPART (NovoLOG) 100 UNIT/ML VIAL SQ SCH (17:30)
[2021-02-28] MEDS: PANTOPRAZOLE 40 MG/10 ML VIAL IV SCH (21:26)
[2021-02-28 21:30] LABS: Glucose,Whole Blood 463 mg/dL (75-99)
[2021-02-28] MEDS ORDERED: LORazepam 2 MG/ML INJ IV STA (22:07)
[2021-02-28] MEDS ORDERED: INSULIN REGULAR 100 UNIT in SODIUM CHLORIDE 0.9% 100 ML IV SCH (22:15)
[2021-02-28 23:13] LABS: ABG PCO2 35 mmHg (35-45); ABG PH 7.35 (7.35-7.45); Allen Test Performed? Yes
[2021-02-28 23:14] LABS: ABG Base Excess -6.3 mmol/L; ABG HCO3 19 mmol/L (21-25); ABG PO2 54 mmHg (83-108); ABG TCO2 20 mmol/L (19-24)
--- NOTE | 2021-02-28 23:36 | XR ---
EXAMINATION TYPE: XR chest 1V DATE OF EXAM: 02/28/2021 COMPARISON: NONE HISTORY: Aspiration. Short of breath. TECHNIQUE: FINDINGS: Heart and mediastinum are normal. Lungs appear clear of consolidation. There is poor inspir ation. There are chest leads. IMPRESSION: Poor inspiration. Normal heart.
[2021-03-01 00:08] LABS: Glucose,Whole Blood 442 mg/dL (75-99)
[2021-03-01 01:00] LABS: Glucose,Whole Blood 373 mg/dL (75-99)
[2021-03-01 01:02] LABS: ABG Base Excess -6.8 mmol/L; ABG HCO3 18 mmol/L (21-25); ABG Oxygen Saturation 97.8 % (94-97); ABG PCO2 31 mmHg (35-45); ABG PH 7.38 (7.35-7.45); ABG PO2 98 mmHg (83-108); ABG TCO2 19 mmol/L (19-24); Allen Test Performed? Yes
[2021-03-01] MEDS: HYDROmorphone 1 MG/ML 1 ML SYRINGE IVP PRN ×8 (01:07→20:02)
--- NOTE | 2021-03-01 01:14 | P.EN ---
A team called on this patient due to increase lethargy patient admitted for pancreatitis , and being treated with IVF aggressive hydration , pain control and NPO patient is sleepy, but easily arousable, answers questions appropriately , and follows commands, however drifts to sleep when not engaged , he seems to be tired and not interested in interaction with the staff. when he felt nauseous and attempted to throw up, he promptly sat up in bed , maintaining good neck posture and was holding his own tray with good boat wrapper , looked alert and awake. abd soft, mild distention tender to palpation lungs clear to auscultation bilaterally pupiles round reactive to light equally no leg edema bilaterally vital sings, BP systolic in 130s, tachycardic , oxygen sat >93% labs reviewed ABG reviewed compensated metabolic acidosis assessment hypertriglyceridemia induced acute pancreatitis switch IVF to LR, give another 1 L bolus and continue with 200 cc/hr after, I will consider another bolus of 1 L , if remains tachycardiac. (patient only received 2 L in the ED) start insulin drip at a rate of 0.2 units /kg for hypertriglyceridemia GOAL Triglyceride <500, if thats not achieved by insulin drip , consider apharesis with plasma exchange repeate ABG close monitor of vital signs , oxygen requirement lactic acidosis resolved if blood sugar drops below 250, I will start d5% at 75 cc per hour in addition to the LR at 200 cc per hour prognosis is guarded strict NPO continue with dilaudid 1 mg q2hr 40 minutes spent in critical care time in the care of this patient
[2021-03-01] MEDS ORDERED: DEXTROSE 5% IN WATER 1,000 ML IV SCH (01:15)
[2021-03-01 01:43] LABS: Glucose,Whole Blood 313 mg/dL (75-99)
[2021-03-01 02:55] LABS: Glucose,Whole Blood 265 mg/dL (75-99)
[2021-03-01 03:47] LABS: Glucose,Whole Blood 294 mg/dL (75-99)
[2021-03-01 05:02] LABS: Glucose,Whole Blood 271 mg/dL (75-99)
[2021-03-01] MEDS: LACTATED RINGERS 1,000 ML IV SCH ×6 (05:24→07:50)
[2021-03-01] MEDS: INSULIN REGULAR 100 UNIT in SODIUM CHLORIDE 0.9% 100 ML IV SCH ×4 (05:28→20:46)
[2021-03-01] MEDS ORDERED: cloNIDine 0.1 MG/24HR PATCH TRANSDERM SCH (05:30)
[2021-03-01 05:53] LABS: Glucose,Whole Blood 272 mg/dL (75-99)
[2021-03-01 06:35] LABS: Glucose,Whole Blood 258 mg/dL (75-99)
[2021-03-01] MEDS: INSULIN ASPART (NovoLOG) 100 UNIT/ML VIAL SQ SCH (06:56)
--- NOTE | 2021-03-01 07:28 | P.PN ---
Subjective today is admitted for hypertrophy remain use pancreatitis. Patient's triglycerides are around 5000. Patient is presently on IV insulin which will help the blood sugars as well as high hypertriglyceridemia. Patient ideally will need a pheresis. We'll repeat triglyceride levels today as patient is improving will continue on IV insulin for now. If triglycerides continue to be high and the patient is symptomatic patient will need apheresis. Once the the triglyceride levels comes on below thousand and I'll transition him to subcutaneous insulin. Patient is getting lactated Ringer's will cut down the dose of lactated Ringer's patient heart rate remains high we'll repeat lactic acid if it goes up patient will be switched to normal saline. Serum calcium is within normal limits. Patient's abdominal pain significantly improved. Patient is asking for ice chips. Patient says he feels 80% better Constitutional: Denied any fatigue denied any fever. Cardio vascular: denied any chest pain, palpitations Gastrointestinal mentioned in HPI Pulmonary: Denied any shortness of breath cough Neurologic denied any new focal deficits All inpatient medications were reviewed and appropriate changes in these medications as dictated in the interval history and assessment and plan. Objective - Vital Signs Vital signs: Vital Signs Temp 98.2 F 03/01/21 05:34 Pulse 149 H 03/01/21 07:08 Resp 17 03/01/21 07:08 BP 135/92 03/01/21 05:34 Pulse Ox 100 03/01/21 05:34 Intake & Output 02/28/21 03/01/21 03/01/21 18:59 06:59 18:59 Intake Total 253.433 Output Total 300 Balance -300 253.433 Weight 98.43 kg 101 kg Intake: Intake, IV Titration 253.433 Amount Insulin Regular 100 unit 53.433 In Sodium Chloride 0.9% 100 ml @ Titrate IV .Q0M [facility] Rx#:[id number] Lactated Ringers 1,000 ml 200 @ 200 mls/hr IV .Q5H [facility] Rx#:[id number] Oral 0 Output: Emesis 300 Other: Voiding Method Toilet Urinal # Voids 1 - Exam PHYSICAL EXAMINATION: GENERAL: The patient is alert and oriented x3, not in any acute distress. Well developed, well nourished. HEENT: Pupils are round and equally reacting to light. EOMI. No scleral icterus. No conjunctival pallor. Normocephalic, atraumatic. No pharyngeal erythema. No thyromegaly. CARDIOVASCULAR: S1 and S2 present. No murmurs, rubs, or gallops. PULMONARY: Chest is clear to auscultation, no wheezing or crackles. ABDOMEN: Severe epigastric abdominal tenderness, nondistended, normoactive bowel sounds. No palpable organomegaly. MUSCULOSKELETAL: No joint swelling or deformity. EXTREMITIES: No cyanosis, clubbing, or pedal edema. NEUROLOGICAL: Gross neurological examination did not reveal any focal deficits. SKIN: No rashes. - Labs CBC & Chem 7: 02/28/21 09:09 02/28/21 09:09 Labs: Abnormal Lab Results - Last 24 Hours (Table) 02/28/21 02/28/21 02/28/21 Range/Units 09:09 09:09 09:09 Lymphocytes # 0.9 L (1.0-4.8) k/uL ABG pCO2 (35-45) mmHg ABG pO2 (83-108) mmHg ABG HCO3 (21-25) mmol/L ABG O2 Saturation (94-97) % Sodium 127 L (137-145) mmol/L Chloride 96 L (98-107) mmol/L Carbon Dioxide 17 L (22-30) mmol/L Glucose 583 H* (74-99) mg/dL POC Glucose (mg/dL) (75-99) mg/dL Plasma Lactic Acid Dinesh (0.7-2.0) mmol/L AST 69 H (17-59) U/L Triglycerides (<150) mg/dL Cholesterol (<200) mg/dL HDL Cholesterol (40-60) mg/dL Amylase 289 H (30-110) U/L Ur Specific [place] 1.036 H (1.001-1.035) Urine Protein 3+ H (Negative) Urine Glucose (UA) 4+ H (Negative) Urine Blood Trace H (Negative) Hyaline Casts 22 H (0-2) /lpf Urine Mucus Rare H (None) /hpf 02/28/21 02/28/21 02/28/21 Range/Units 09:09 15:28 16:48 Lymphocytes # (1.0-4.8) k/uL ABG pCO2 (35-45) mmHg ABG pO2 (83-108) mmHg ABG HCO3 (21-25) mmol/L ABG O2 Saturation (94-97) % Sodium (137-145) mmol/L Chloride (98-107) mmol/L Carbon Dioxide (22-30) mmol/L Glucose (74-99) mg/dL POC Glucose (mg/dL) 381 H (75-99) mg/dL Plasma Lactic Acid Dinesh 3.8 H* (0.7-2.0) mmol/L AST (17-59) U/L Triglycerides 4970 H (<150) mg/dL Cholesterol 359 H (<200) mg/dL HDL Cholesterol 14 L (40-60) mg/dL Amylase (30-110) U/L Ur Specific [place] (1.001-1.035) Urine Protein (Negative) Urine Glucose (UA) (Negative) Urine Blood (Negative) Hyaline Casts (0-2) /lpf Urine Mucus (None) /hpf 02/28/21 02/28/21 03/01/21 Range/Units 21:28 23:05 00:06 Lymphocytes # (1.0-4.8) k/uL ABG pCO2 (35-45) mmHg ABG pO2 54 L* (83-108) mmHg ABG HCO3 19 L (21-25) mmol/L ABG O2 Saturation 89.0 L (94-97) % Sodium (137-145) mmol/L Chloride (98-107) mmol/L Carbon Dioxide (22-30) mmol/L Glucose (74-99) mg/dL POC Glucose (mg/dL) 463 H 442 H (75-99) mg/dL Plasma Lactic Acid Dinesh (0.7-2.0) mmol/L AST (17-59) U/L Triglycerides (<150) mg/dL Cholesterol (<200) mg/dL HDL Cholesterol (40-60) mg/dL Amylase (30-110) U/L Ur Specific [place] (1.001-1.035) Urine Protein (Negative) Urine Glucose (UA) (Negative) Urine Blood (Negative) Hyaline Casts (0-2) /lpf Urine Mucus (None) /hpf 03/01/21 03/01/21 03/01/21 Range/Units 00:40 01:00 01:32 Lymphocytes # (1.0-4.8) k/uL ABG pCO2 31 L (35-45) mmHg ABG pO2 (83-108) mmHg ABG HCO3 18 L (21-25) mmol/L ABG O2 Saturation 97.8 H (94-97) % Sodium (137-145) mmol/L Chloride (98-107) mmol/L Carbon Dioxide (22-30) mmol/L Glucose (74-99) mg/dL POC Glucose (mg/dL) 373 H 313 H (75-99) mg/dL Plasma Lactic Acid Dinesh (0.7-2.0) mmol/L AST (17-59) U/L Triglycerides (<150) mg/dL Cholesterol (<200) mg/dL HDL Cholesterol (40-60) mg/dL Amylase (30-110) U/L Ur Specific [place] (1.001-1.035) Urine Protein (Negative) Urine Glucose (UA) (Negative) Urine Blood (Negative) Hyaline Casts (0-2) /lpf Urine Mucus (None) /hpf 03/01/21 03/01/21 03/01/21 Range/Units 02:34 03:27 04:41 Lymphocytes # (1.0-4.8) k/uL ABG pCO2 (35-45) mmHg ABG pO2 (83-108) mmHg ABG HCO3 (21-25) mmol/L ABG O2 Saturation (94-97) % Sodium (137-145) mmol/L Chloride (98-107) mmol/L Carbon Dioxide (22-30) mmol/L Glucose (74-99) mg/dL POC Glucose (mg/dL) 265 H 294 H 271 H (75-99) mg/dL Plasma Lactic Acid Dinesh (0.7-2.0) mmol/L AST (17-59) U/L Triglycerides (<150) mg/dL Cholesterol (<200) mg/dL HDL Cholesterol (40-60) mg/dL Amylase (30-110) U/L Ur Specific [place] (1.001-1.035) Urine Protein (Negative) Urine Glucose (UA) (Negative) Urine Blood (Negative) Hyaline Casts (0-2) /lpf Urine Mucus (None) /hpf 03/01/21 03/01/21 Range/Units 05:33 06:31 Lymphocytes # (1.0-4.8) k/uL ABG pCO2 (35-45) mmHg ABG pO2 (83-108) mmHg ABG HCO3 (21-25) mmol/L ABG O2 Saturation (94-97) % Sodium (137-145) mmol/L Chloride (98-107) mmol/L Carbon Dioxide (22-30) mmol/L Glucose (74-99) mg/dL POC Glucose (mg/dL) 272 H 258 H (75-99) mg/dL Plasma Lactic Acid Dinesh (0.7-2.0) mmol/L AST (17-59) U/L Triglycerides (<150) mg/dL Cholesterol (<200) mg/dL HDL Cholesterol (40-60) mg/dL Amylase (30-110) U/L Ur Specific [place] (1.001-1.035) Urine Protein (Negative) Urine Glucose (UA) (Negative) Urine Blood (Negative) Hyaline Casts (0-2) /lpf Urine Mucus (None) /hpf Assessment and Plan Plan: -Acute pancreatitis: Continue to upper 20s anemia continue with IV fluids as mentioned above any with IV insulin for now. Further management as mentioned in the interval history. -Highly elevated blood sugars patient is on IV insulin. -Lactic acidosis secondary to severe dehydration all at this time we'll repeat lactic acid as patient is presently on lactated Ringer's. -Tachycardia due to severe intravascular depletion and systemic inflammatory response. Patient has sinus tachycardia and patient is asymptomatic at this time continue with IV fluids. -hypovolemic hyponatremia patient will be started on IV fluids -Anion gap metabolic acidosis secondary to activity acidosis no ketosis at this time -Hypovolemic hyponatremia: Continue with IV fluids -DVT prophylaxis: Lovenox GI prophylaxis Protonix
[2021-03-01 07:45] LABS: Glucose,Whole Blood 175 mg/dL (75-99)
[2021-03-01] MEDS ORDERED: DEXTROSE 5%-0.45% NACL 1,000 ML IV SCH (07:45)
[2021-03-01] MEDS ORDERED: LACTATED RINGERS 1,000 ML IV SCH (08:00)
[2021-03-01 08:03] LABS: Basophils # (A) 0.2 k/uL (0-0.2); Basophils % (A) 1 %; Eosinophils % (A) 0 %; Lymphocytes # (A) 1.1 k/uL (1.0-4.8); Lymphocytes % (A) 6 %; Monocytes # (A) 0.9 k/uL (0-1.0); Monocytes % (A) 5 %; Neutrophils # (A) 15.8 k/uL (1.3-7.7); Neutrophils % (A) 88 %
[2021-03-01] MEDS: PANTOPRAZOLE 40 MG/10 ML VIAL IV SCH ×2 (08:15→20:49)
[2021-03-01] MEDS: DEXTROSE 5%-0.9% NACL 1,000 ML IV SCH ×2 (08:16→20:46)
--- NOTE | 2021-03-01 08:16 | XR ---
EXAMINATION TYPE: XR chest 1V portable DATE OF EXAM: 03/01/2021 COMPARISON: 02/28/2021 INDICATION: Pancreatitis, check for ARDS or fluid overload. TECHNIQUE: Single frontal view of the chest is obtained. FINDINGS: The heart size is normal. The pulmonary vasculature is normal. The lungs are clear. No suspicious changes for volume overload are evident. Radiographic findings ca n lag behind clinical findings. Follow-up can be performed as clinically indicated. IMPRESSION: 1. No acute pulmonary process. No suspicious radiographic changes for volume overload.
[2021-03-01 08:31] LABS: Glucose,Whole Blood 226 mg/dL (75-99)
[2021-03-01] MEDS ORDERED: ENOXAPARIN 40 MG/0.4 ML SYRINGE SQ SCH (09:00)
[2021-03-01 09:30] LABS: Glucose,Whole Blood 244 mg/dL (75-99)
[2021-03-01] MEDS ORDERED: SODIUM CHLORIDE 0.9% 1,000 ML IV ONE ×2 (09:49→14:17)
[2021-03-01 10:21] LABS: Basophils # (A) 0.2 k/uL (0-0.2); Basophils % (A) 1 %; Eosinophils # (A) 0.2 k/uL (0-0.7); Eosinophils % (A) 1 %; HCT 50.8 % (39.0-53.0); Lymphocytes % (A) 7 %; MCV 83.9 fL (80.0-100.0); Mean Platelet Volume 8.2; Monocytes # (A) 0.7 k/uL (0-1.0); Monocytes % (A) 5 %; Neutrophils # (A) 12.8 k/uL (1.3-7.7); Neutrophils % (A) 85 %; Platelet Count 214 k/uL (150-450); RBC 6.06 m/uL (4.30-5.90); RDW 14.1 % (11.5-15.5); WBC 15.1 k/uL (3.8-10.6)
[2021-03-01 10:25] LABS: MCH 28.6 pg (25.0-35.0); MCHC 34.3 g/dL (31.0-37.0)
[2021-03-01] MEDS: MEROPENEM 1 GM in SODIUM CHLORIDE 0.9% 100 ML IVPB SCH ×2 (10:25→17:33)
[2021-03-01 10:26] LABS: HGB 17.4 gm/dL (13.0-17.5)
[2021-03-01 10:28] LABS: INR 1.2 (<1.2); Prothrombin Time 12.2 sec (9.0-12.0)
[2021-03-01 10:35] LABS: African American GFR (CKD) >90 (>60 ml/min/1.73 sqM); Anion Gap 9 mmol/L; Blood Urea Nitrogen 19 mg/dL (9-20); Carbon Dioxide 17 mmol/L (22-30); Chloride 108 mmol/L (98-107); Glucose 233 mg/dL (74-99); Lipase 1621 U/L (23-300); Non-African American GFR(CKD) 90 (>60 ml/min/1.73 sqM); Sodium 134 mmol/L (137-145)
[2021-03-01 10:38] LABS: Glucose,Whole Blood 230 mg/dL (75-99)
[2021-03-01 10:49] LABS: Calcium 6.3 mg/dL (8.4-10.2)
[2021-03-01 10:51] LABS: Potassium 6.3 mmol/L (3.5-5.1)
[2021-03-01] MEDS: SODIUM CHLORIDE 0.9% 1,000 ML IV SCH ×2 (10:54→14:34)
[2021-03-01 10:58] LABS: Triglycerides 2674 mg/dL (<150)
[2021-03-01 11:22] LABS: Poikilocytosis (M) Present
[2021-03-01 11:25] LABS: Appearance,Urine Turbid (Clear); Bilirubin,Urine 1+ (Negative); Blood,Urine Small (Negative); Color,Urine Dark Brown; Glucose,Urine (UA) 2+ (Negative); Hyaline Casts,Urine 8 /lpf (0-2); Ketones,Urine Negative (Negative); Leukocyte Esterase,Urine Negative (Negative); Mucus,Urine Few /hpf; Nitrite,Urine Negative (Negative); PH, Urine 5.5 (5.0-8.0); Protein,Urine 3+ (Negative); RBC,Urine 1 /hpf (0-5); Specific Gravity,Urine 1.034 (1.001-1.035); Squamous Epithelial Cell,Urine 1 /hpf (0-4); WBC,Urine 3 /hpf (0-5)
[2021-03-01 11:42] LABS: Glucose,Whole Blood 228 mg/dL (75-99)
[2021-03-01] MEDS ORDERED: CALCIUM GLUCONATE 1 GM in SODIUM CHLORIDE 0.9% 100 ML IVPB ONE ×2 (12:00→16:46)
[2021-03-01 12:09] LABS: Glucose,Whole Blood 202 mg/dL (75-99)
[2021-03-01 12:41] LABS: Hemoglobin A1C 9.3 % (4.0-6.0)
[2021-03-01] MEDS: ONDANSETRON 4 MG/2 ML VIAL IVP PRN (12:50)
[2021-03-01 13:10] VITALS: BMI 31.9
[2021-03-01 13:16] LABS: Glucose,Whole Blood 260 mg/dL (75-99)
[2021-03-01 15:01] LABS: Glucose,Whole Blood 247 mg/dL (75-99)
--- NOTE | 2021-03-01 15:04 | P.CNPUL ---
History of Present Illness Consult date: 03/01/21 Chief complaint: Acute pancreatitis History of present illness: This is a 25-year-old male patient, who was hospitalized for an acute pancreatitis induced by hypertriglyceridemia. I was asked even with this patient in one to the intensive care unit as the patient was having abdominal pain, nausea and some periodic breathing which was thought to be a Edgar-Loving type of respiration. At the time of my evaluation, the patient was awake and alert. He was quite uncomfortable and he was having some abdominal tenderness and he was nauseated. He was tachycardic. No altered mentation. Denied having any previous history of lung disease or disorders. He has a BMI of 31.9. No 70 sleep breathing disorder. Based on my review of the records, the patient's triglyceride level 4970. The patient had a blood sugar of 583. He is not known to have any diabetes mellitus. Based on these findings, he was started on insulin drip for blood sugar control and currently insulin drip is running at 0.12 units per kilogram per hour. The patient was also given fluid resuscitation. He received several liters of IV fluid bolus and currently he is on D5 normal sed rate of 75 mL an hour in addition to a normal saline running at 175 mL an hour. His most recent blood sugar is at 260 and nitroglycerin drip is being titrated. Follow-up triglyceride level from this morning showed a drop in the level down to 2674. Lipase level is at 1621. He does have a component of non-anion gap metabolic acidosis blood work with a serum bicarbonate was 17. Sodium level is at 134 from a baseline of 127. A blood gases was done today and the patient's pH 7.38, with a P CO2 of 31 and pO2 of 98 and this was done and FiO2 of 6 L by nasal cannula. The patient is tachycardic with a heart rate ranging between 11/28/1951. The patient is maintaining his own blood pressure. Slightly tachypneic and today's evaluation. White cell count is at 15.1 and the patient was started on IV little dependent. Platelet counts at 214. Calcium level dropped this morning down to 6.3 and ionized calcium is also low at 3.9. AST, ALT and bilirubin are all within normal limits. Troponins are negative. Serum albumin was at 4.6. Review of Systems Constitutional: Reports fatigue, Reports lethargy, Reports poor appetite, Reports weakness Eyes: denies as per HPI, denies blurred vision, denies bulging eye, denies decreased vision, denies diplopia, denies discharge, denies dry eye, denies irritation, denies itching, denies pain, denies photophobia, denies loss of peripheral vision, denies loss of vision, denies tunnel vision/blind spots Ears: deny: decreased hearing, ear discharge, earache, tinnitus Ears, nose, mouth and throat: Reports as per HPI Breasts: absent: as per HPI, gynecomastia Cardiovascular: Reports dyspnea on exertion Respiratory: Reports dyspnea Gastrointestinal: Reports abdominal pain, Reports nausea, Reports vomiting Genitourinary: Reports as per HPI Musculoskeletal: Reports as per HPI Musculoskeletal: absent: ankle pain, ankle stiffness, ankle swelling, as per HPI, elbow pain, elbow stiffness, elbow swelling, foot pain, foot stiffness, foot swelling, hand pain, hand stiffness, hand swelling, hip pain, hip stiffness, hip swelling, knee pain, knee stiffness, knee swelling, shoulder pain, shoulder stiffness, shoulder swelling, wrist pain, wrist stiffness, wrist swelling Integumentary: Reports as per HPI Neurological: Reports as per HPI Psychiatric: Reports as per HPI Endocrine: Reports as per HPI, Reports high blood sugars Hematologic/Lymphatic: Reports as per HPI Allergic/Immunologic: Reports as per HPI Past Medical History Past Medical History: No Reported History Additional Past Medical History / Comment(s): peptic ulcer 07/18 History of Any Multi-Drug Resistant Organisms: None Reported Past Surgical History: Orthopedic Surgery Additional Past Surgical History / Comment(s): Left testical removed Past Anesthesia/Blood Transfusion Reactions: No Reported Reaction Past Psychological History: No Psychological Hx Reported Smoking Status: Current every day smoker Past Alcohol Use History: Occasional Additional Past Alcohol Use History / Comment(s): pt states alcohol 1-2x/yr and edibles every 6 months or so; half a pack smoker per day Past Drug Use History: Marijuana Medications and Allergies Home Medications Medication Instructions Recorded Confirmed Type No Known Home Medications 02/28/21 02/28/21 History Allergies Allergy/AdvReac Type Severity Reaction Status Date / Time prednisone AdvReac hyperglycem Verified 02/28/21 12:19 ia Physical Exam Vitals: Vital Signs Temp Pulse Pulse Resp BP BP Pulse Ox 03/01/21 14:00 137 H 26 H 123/75 92 L 05/04/21 13:15 138 H 24 126/103 93 L 03/01/21 13:00 141 H 24 124/92 93 L 03/01/21 12:45 154 H 15 122/90 95 03/01/21 12:30 142 H 12 122/90 93 L 03/01/21 12:15 100.9 F H 147 H 25 H 122/90 86 L 03/01/21 08:00 98.5 F 150 H 20 132/78 100 03/01/21 07:30 95 03/01/21 07:08 149 H 17 03/01/21 05:34 98.2 F 149 H 17 135/92 100 03/01/21 00:40 98.1 F 150 H 23 141/87 94 L 03/01/21 00:11 99.4 F 147 H 24 131/98 93 L 03/01/21 00:01 147 H 24 131/98 93 L 02/28/21 22:26 145 H 21 129/92 95 02/28/21 21:00 142 H 22 137/95 95 02/28/21 19:14 99.4 F 133 H 22 161/103 93 L 02/28/21 16:00 92 L 02/28/21 15:30 99.0 F 111 H 19 156/98 84 L Intake and Output 02/28/21 03/01/21 03/01/21 22:59 06:59 14:59 Intake Total 253.433 499.645 Output Total 300 20 Balance -300 253.433 479.645 Intake: IV 450 Dextrose 5% in Water 1, 225 000 ml @ 75 mls/hr IV . [id number] [facility] Rx#:[id number] Sodium Chloride 0.9% 1, 225 000 ml @ 175 mls/hr IV . Q5H43M [facility] Rx#:[id number] Intake, IV Titration 253.433 49.645 Amount Insulin Regular 100 unit 49.645 In Sodium Chloride 0.9% 100 ml @ 0.12 UNIT/KG/HR 12.241 mls/hr IV .Q8H16M [facility] Rx#:[id number] Insulin Regular 100 unit 53.433 In Sodium Chloride 0.9% 100 ml @ Titrate IV .Q0M [facility] Rx#:[id number] Lactated Ringers 1,000 ml 200 @ 200 mls/hr IV .Q5H [facility] Rx#:[id number] Oral 0 Output: Urine 20 Emesis 300 Other: Voiding Method Indwelling Catheter # Voids 1 Weight 101 kg 101 kg GENERAL: The patient is alert and oriented x3, not in any acute distress. Well developed, well nourished. Head exam was generally normal. There was no scleral icterus or corneal arcus. Mucous membranes were moist. Neck was supple and without jugular venous distension, thyromegaly, or carotid bruits. Carotids were easily palpable bilaterally. There was no adenopathy. Cardiac exam revealed the PMI to be normally situated and sized. The rhythm was regular and no extrasystoles were noted during several minutes of auscultation. The first and second heart sounds were normal and physiologic splitting of the second heart sound was noted. There were no murmurs, rubs, clicks, or gallops. Lungs were clear to auscultation and percussion, and with normal diaphragmatic excursion. No wheezes or rales were noted. ABDOMEN: The patient has abdominal tenderness diffuse mainly direct abdominal tenderness. No rebound tenderness. No guarding. Bowel sounds are hypoactive. No ascites. Examination of the extremities revealed easily palpable radial, femoral and pedal pulses. There was no cyanosis, clubbing or edema. Neurologically, the patient is awake and alert and the patient does not have any focal neurological deficit. Cranial nerves are essentially intact. Examination of the skin revealed no evidence of significant rashes, suspicious appearing nevi or other concerning lesions. Results - Laboratory Findings CBC and BMP: 03/01/21 10:08 03/01/21 13:01 ABG ABG pH 7.38 (7.35-7.45) 03/01/21 01:00 ABG pCO2 31 mmHg (35-45) L 03/01/21 01:00 ABG pO2 98 mmHg (83-108) 03/01/21 01:00 ABG O2 Saturation 97.8 % (94-97) H 03/01/21 01:00 PT/INR, D-dimer PT 12.2 sec (9.0-12.0) H 03/01/21 10:08 INR 1.2 (<1.2) H 03/01/21 10:08 Abnormal lab findings: Abnormal Labs 02/28/21 02/28/2121 09:09 09:09 09:09 WBC RBC Neutrophils # Lymphocytes # 0.9 L PT INR ABG pCO2 ABG pO2 ABG HCO3 ABG O2 Saturation Sodium 127 L Potassium Chloride 96 L Carbon Dioxide 17 L Glucose 583 H* POC Glucose (mg/dL) Hemoglobin A1c Plasma Lactic Acid Dinesh Calcium Ionized Calcium Delmis AST 69 H Triglycerides Cholesterol HDL Cholesterol Amylase 289 H Lipase Ur Specific [place] 1.036 H Urine Protein 3+ H Urine Glucose (UA) 4+ H Urine Blood Trace H Urine Bilirubin Hyaline Casts 22 H Urine Mucus Rare H 02/28/21 02/28/21 02/28/21 09:09 15:28 16:48 WBC RBC Neutrophils # Lymphocytes # PT INR ABG pCO2 ABG pO2 ABG HCO3 ABG O2 Saturation Sodium Potassium Chloride Carbon Dioxide Glucose POC Glucose (mg/dL) 381 H Hemoglobin A1c Plasma Lactic Acid Dinesh 3.8 H* Calcium Ionized Calcium Delmis AST Triglycerides 4970 H Cholesterol 359 H HDL Cholesterol 14 L Amylase Lipase Ur Specific [place] Urine Protein Urine Glucose (UA) Urine Blood Urine Bilirubin Hyaline Casts Urine Mucus 02/28/21 02/28/21 03/01/21 21:28 23:05 00:06 WBC RBC Neutrophils # Lymphocytes # PT INR ABG pCO2 ABG pO2 54 L* ABG HCO3 19 L ABG O2 Saturation 89.0 L Sodium Potassium Chloride Carbon Dioxide Glucose POC Glucose (mg/dL) 463 H 442 H Hemoglobin A1c Plasma Lactic Acid Dinesh Calcium Ionized Calcium Delmis AST Triglycerides Cholesterol HDL Cholesterol Amylase Lipase Ur Specific [place] Urine Protein Urine Glucose (UA) Urine Blood Urine Bilirubin Hyaline Casts Urine Mucus 03/01/21 03/01/21 03/01/21 00:40 01:00 01:32 WBC RBC Neutrophils # Lymphocytes # PT INR ABG pCO2 31 L ABG pO2 ABG HCO3 18 L ABG O2 Saturation 97.8 H Sodium Potassium Chloride Carbon Dioxide Glucose POC Glucose (mg/dL) 373 H 313 H Hemoglobin A1c Plasma Lactic Acid Dinesh Calcium Ionized Calcium Delmis AST Triglycerides Cholesterol HDL Cholesterol Amylase Lipase Ur Specific [place] Urine Protein Urine Glucose (UA) Urine Blood Urine Bilirubin Hyaline Casts Urine Mucus 03/01/21 03/01/21 03/01/21 02:34 03:27 04:41 WBC RBC Neutrophils # Lymphocytes # PT INR ABG pCO2 ABG pO2 ABG HCO3 ABG O2 Saturation Sodium Potassium Chloride Carbon Dioxide Glucose POC Glucose (mg/dL) 265 H 294 H 271 H Hemoglobin A1c Plasma Lactic Acid Dinesh Calcium Ionized Calcium Delmis AST Triglycerides Cholesterol HDL Cholesterol Amylase Lipase Ur Specific [place] Urine Protein Urine Glucose (UA) Urine Blood Urine Bilirubin Hyaline Casts Urine Mucus 03/01/21 03/01/21 03/01/21 05:33 06:20 06:31 WBC RBC Neutrophils # Lymphocytes # PT INR ABG pCO2 ABG pO2 ABG HCO3 ABG O2 Saturation Sodium Potassium Chloride Carbon Dioxide Glucose POC Glucose (mg/dL) 272 H 258 H Hemoglobin A1c Plasma Lactic Acid Dinesh Calcium Ionized Calcium Delmis 3.9 L AST Triglycerides Cholesterol HDL Cholesterol Amylase Lipase Ur Specific [place] Urine Protein Urine Glucose (UA) Urine Blood Urine Bilirubin Hyaline Casts Urine Mucus 03/01/21 03/01/21 03/01/21 06:41 06:41 07:24 WBC RBC Neutrophils # 15.8 H Lymphocytes # PT INR ABG pCO2 ABG pO2 ABG HCO3 ABG O2 Saturation Sodium Potassium Chloride Carbon Dioxide Glucose POC Glucose (mg/dL) Hemoglobin A1c 9.3 H Plasma Lactic Acid Dinesh 2.5 H* Calcium Ionized Calcium Delmis AST Triglycerides Cholesterol HDL Cholesterol Amylase Lipase Ur Specific [place] Urine Protein Urine Glucose (UA) Urine Blood Urine Bilirubin Hyaline Casts Urine Mucus 03/01/21 03/01/21 03/01/21 07:40 08:29 09:28 WBC RBC Neutrophils # Lymphocytes # PT INR ABG pCO2 ABG pO2 ABG HCO3 ABG O2 Saturation Sodium Potassium Chloride Carbon Dioxide Glucose POC Glucose (mg/dL) 175 H 226 H 244 H Hemoglobin A1c Plasma Lactic Acid Dinesh Calcium Ionized Calcium Delmis AST Triglycerides Cholesterol HDL Cholesterol Amylase Lipase Ur Specific [place] Urine Protein Urine Glucose (UA) Urine Blood Urine Bilirubin Hyaline Casts Urine Mucus 03/01/21 03/01/21 03/01/21 10:02 10:08 10:08 WBC 15.1 H RBC 6.06 H Neutrophils # 12.8 H Lymphocytes # PT INR ABG pCO2 ABG pO2 ABG HCO3 ABG O2 Saturation Sodium 134 L Potassium 6.3 H* Chloride 108 H Carbon Dioxide 17 L Glucose 233 H POC Glucose (mg/dL) Hemoglobin A1c Plasma Lactic Acid Dinesh 2.4 H* Calcium 6.3 L* Ionized Calcium Delmis AST Triglycerides 2674 H Cholesterol HDL Cholesterol Amylase Lipase 1621 H Ur Specific [place] Urine Protein Urine Glucose (UA) Urine Blood Urine Bilirubin Hyaline Casts Urine Mucus 03/01/21 03/01/21 03/01/21 10:08 10:28 10:30 WBC RBC Neutrophils # Lymphocytes # PT 12.2 H INR 1.2 H ABG pCO2 ABG pO2 ABG HCO3 ABG O2 Saturation Sodium Potassium Chloride Carbon Dioxide Glucose POC Glucose (mg/dL) 230 H Hemoglobin A1c Plasma Lactic Acid Dinesh Calcium Ionized Calcium Delmis AST Triglycerides Cholesterol HDL Cholesterol Amylase Lipase Ur Specific [place] Urine Protein 3+ H Urine Glucose (UA) 2+ H Urine Blood Small H Urine Bilirubin 1+ H Hyaline Casts 8 H Urine Mucus Few H 03/01/21 03/01/21 03/01/21 11:41 12:08 13:01 WBC RBC Neutrophils # Lymphocytes # PT INR ABG pCO2 ABG pO2 ABG HCO3 ABG O2 Saturation Sodium Potassium Chloride Carbon Dioxide Glucose POC Glucose (mg/dL) 228 H 202 H Hemoglobin A1c Plasma Lactic Acid Dinesh 2.3 H* Calcium Ionized Calcium Delmis AST Triglycerides Cholesterol HDL Cholesterol Amylase Lipase Ur Specific [place] Urine Protein Urine Glucose (UA) Urine Blood Urine Bilirubin Hyaline Casts Urine Mucus 03/01/21 03/01/21 13:01 13:15 WBC RBC Neutrophils # Lymphocytes # PT INR ABG pCO2 ABG pO2 ABG HCO3 ABG O2 Saturation Sodium Potassium 5.8 H Chloride Carbon Dioxide Glucose POC Glucose (mg/dL) 260 H Hemoglobin A1c Plasma Lactic Acid Dinesh Calcium Ionized Calcium Delmis AST Triglycerides Cholesterol HDL Cholesterol Amylase Lipase Ur Specific [place] Urine Protein Urine Glucose (UA) Urine Blood Urine Bilirubin Hyaline Casts Urine Mucus - Diagnostic Findings Chest x-ray: image reviewed Assessment and Plan Plan: 1 acute pancreatitis, induced by hypertriglyceridemia 2 abdominal pain secondary to pancreatitis 3 hypertriglyceridemia 4 non-anion gap metabolic acidosis 5 sinus tachycardia secondary to above, as part of systemic inflammatory response syndrome and possibly component of intravascular volume depletion/dehydration 6 reactive leukocytosis 7 hyperglycemia, possibly with a component of diabetes mellitus. Currently on insulin drip for treatment of his hyperlipidemia/hypertriglyceridemia blood sugar control. Insulin drip is at 0.12 units per kilogram per hour. 8 hypocalcemia secondary to above YEMI We'll check lites every disorders regarding the acute pancreatitis The patient may be a good candidate for plasmapheresis regarding hypertriglyceridemia induced acute pancreatitis. We don't offer the service even the patient may be a good candidate for transfer to a tertiary care center for possible plasmapheresis. Meanwhile, we will going to continue our treatment with insulin and the patient is being treated with a nitroglycerin drip and the patient is also receiving fluid resuscitation. Empiric antibiotic coverage and IV meropenem IV fluids and the patient was resuscitated aggressively and currently is on normal saline at rate of 175 mL an hour addition to D5 normal saline at the rate of 75 mL an hour Dilaudid for pain control Monitor electrodes including calcium levels Discussed the case with nephrology, could not offer any hemofiltration at our FACILITY regarding hypertriglyceridemia Assessment this patient intensive care unit Control pain and nausea with a combination of Dilaudid and possibly Zofran/Compazine electrolytes Supportive care and transfer this patient to a tertiary care center for the above-mentioned reasons.
[2021-03-01 15:57] LABS: Glucose,Whole Blood 262 mg/dL (75-99)
[2021-03-01 17:31] LABS: Glucose,Whole Blood 325 mg/dL (75-99)
[2021-03-01 18:17] LABS: Glucose,Whole Blood 296 mg/dL (75-99)
--- NOTE | 2021-03-01 18:47 | CONS ---
CONSULTATION DATE OF DICTATION: 03/01/2021 REASON FOR CONSULTATION: Acute pancreatitis. HISTORY OF PRESENT ILLNESS: The patient is a 25-year-old pleasant white male admitted to the hospital with acute onset of severe epigastric pain that started about 3 days ago. He had several episodes of nausea, vomiting. He came to the emergency room and was noted to have elevated amylase and lipase consistent with acute pancreatitis. He was also noted to have high triglycerides with a fasting triglyceride level of 4900 and hyperglycemia with a blood sugar of 400. The patient never had pancreatitis in the past. He has been having intermittent episodes of epigastric pain on and off that lasted for a few hours and subsided. He did have ultrasound of the gallbladder that did not show any gallstones, and CT scan of the abdomen and pelvis did show changes in the pancreas consistent with acute pancreatitis. He was somewhat hemodynamically unstable. He was transferred to the intensive care unit yesterday. He still remains tachycardic. He continues to have abdominal pain. No further episodes of nausea, vomiting. No fever, chills or night sweats. PAST MEDICAL HISTORY: Unremarkable. PAST SURGICAL HISTORY: Left testicle removed. HOME MEDICATIONS: None. ALLERGIES: NO KNOWN DRUG ALLERGIES. SOCIAL HISTORY: Chronic smoker. Occasionally drinks alcohol on a social basis. FAMILY HISTORY: Unremarkable. No history of hypercholesteremia in the family. REVIEW OF SYSTEMS: CARDIOPULMONARY: He denies any chest pain or shortness of breath. GENITOURINARY: No dysuria or hematuria. MUSCULOSKELETAL: Unremarkable. SKIN: Unremarkable. ENDOCRINE: Severe hypertriglyceridemia diagnosed this hospitalization. NEUROLOGY: Unremarkable. PSYCHIATRY: Unremarkable. ENT/VISION: Unremarkable. CONSTITUTIONAL: No recent weight loss. No fever, chills, night sweats. PHYSICAL EXAMINATION: He appears slightly uncomfortable. VITAL SIGNS: Stable. Blood pressure is 123/75, pulse rate is 137 and temperature 98. HEENT examination unremarkable. Conjunctivae pink. Sclerae anicteric. Oral cavity no lesions. NECK: No JVD or lymph node enlargement. CHEST: Clear to auscultation. HEART: Regular rate and rhythm. ABDOMEN: Soft. It was slightly distended. There was severe tenderness in the epigastric area. Rest of the abdomen had mild diffuse tenderness. EXTREMITIES: No pedal edema. NEUROLOGIC: Alert and oriented x3. No focal deficits. LABS: Labs at the time of admission to the hospital showed WBC 6.5, hemoglobin 16.1 and platelets 160. Today hemoglobin went up to 17.4, WBC 15.1, platelets are normal. BUN and creatinine are 19 and 1.12, respectively. Sodium 134. Potassium was 6.3. Repeat is 5.8. CO2 108, chloride 17. BUN and creatinine 19 and 1.12. Lipase yesterday could not be calculated because the serum was . Today it was 1621. Fasting triglycerides were 4594 yesterday and today 2674. CT of the abdomen and pelvis done in the emergency room late last night showed changes consistent with acute pancreatitis. No areas of fluid collection noted and severe fatty infiltration seen. IMPRESSION: 1. Acute pancreatitis secondary to hypertriglyceridemia; fasting triglyceride levels were 4900. CT scan showed evidence of acute pancreatitis. Patient is on aggressive IV hydration. Remains very tachycardic and still has lactic acidosis secondary to hypoperfusion. 2. Hypertriglyceridemia. 3. Hyperglycemia/newly diagnosed diabetes. Presently on IV insulin drip. 4. Lactic acidosis. RECOMMENDATIONS: 1. Continue with aggressive IV hydration. Patient is quite tachycardic and has significantly decreased urine output. Hence we will give him one more liter of 0.9 normal saline bolus and increase the IV fluids to 200 mL/hour. 2. Monitor electrolytes closely. 3. Continue to maintain n.p.o. status except for ice chips. 4. Continue with IV Protonix 40 mg q.12 hours. 5. Will follow with you closely. Thank you for this consultation. MMODL / IJN: [id number] /
[2021-03-01 19:32] LABS: Glucose,Whole Blood 189 mg/dL (75-99)
[2021-03-01 20:15] LABS: Glucose,Whole Blood 197 mg/dL (75-99)
[2021-03-01 20:27] VITALS: TEMP 97.9
[2021-03-01 21:25] VITALS: BP 146/95; PULSE 147; RESP 20
[2021-03-01 22:29] LABS: African American GFR (CKD) 95.5 (60.0-200.0); Albumin/Globulin Ratio 1.74 (1.60-3.17); Anion Gap 17.4 mmol/L (4.00-12.00); BUN/Creat Ratio 13.33 Ratio (12.00-20.00); Calcium 7.2 mg/dL (8.7-10.3); Carbon Dioxide 12.6 mmol/L (21.6-31.8); Globulin 2.3 g/dL (1.6-3.3); Non-African American GFR(CKD) 82.4 (60.0-200.0); Potassium 5.6 mmol/L (3.5-5.5); Total Bilirubin 1.5 mg/dL (0.3-1.2); Total Protein 6.3 g/dL (6.2-8.2)
--- NOTE | 2021-03-02 08:47 | P.DS ---
Providers Date of admission: 03/01/21 07:17 Expected date of discharge: 03/01/21 Attending physician: Luis Mendez Consults: 02/28/21 13:05 Consult Physician Routine Consulting Provider: Didi Sousa Consult Reason/Comments: Pancreatitis Do you want consulting provider notified?: Yes 03/01/21 09:36 Consult Physician Routine Consulting Provider: Steve Moore Consult Reason/Comments: pancreatitis, possible transfer to ICU Do you want consulting provider notified?: Yes Primary care physician: Cristino Telles MD Hospital Course: Patient was admitted for hypertrophy remain use pancreatitis. Patient's triglycerides are around 5000. Patient is presently on IV insulin which will help the blood sugars as well as high hypertriglyceridemia. Patient ideally will need a pheresis. We'll repeat triglyceride levels today as patient is improving will continue on IV insulin for now. If triglycerides continue to be high and the patient is symptomatic patient will need apheresis. Once the the triglyceride levels comes on below thousand and I'll transition him to subcutaneous insulin. Patient is getting lactated Ringer's will cut down the dose of lactated Ringer's patient heart rate remains high we'll repeat lactic acid if it goes up patient will be switched to normal saline. Serum calcium is within normal limits. Patient's abdominal pain significantly improved. Patient is asking for ice chips. Patient says he feels 80% better. Later in the day patient clinical condition continued to get worse patient. Look toxic and with Edgar-Loving breathing. Patient was subsequently transferred to ICU. Patient will need plasmapheresis are apheresis for hypertriglyceridemia. Patient was subsequently transferred to [facility] further procedure. Patient later in the day was started on meropenem. Patient had lactic is doses because of which IV fluids were switched to normal saline from lactated Ringer's. Patient started having low-grade fevers as well. Assessment and Plan Plan: -Acute pancreatitis: Patient was transferred to an [facility], for plasmapheresis -Highly elevated blood sugars patient is on IV insulin. -Lactic acidosis secondary to severe dehydration, systemic inflammatory response from pancreatitis -Tachycardia due to severe intravascular depletion and systemic inflammatory response. Patient was aggressively resuscitated with IV fluids with some improvement in heart rate -hypovolemic hyponatremia -Anion gap metabolic acidosis secondary to activity acidosis no ketosis at this time -Hypovolemic hyponatremia: Continue with IV fluids -DVT prophylaxis: Edelnox GI prophylaxis Protonix Patient Condition at Discharge: Stable Plan - Discharge Summary Discharge Rx Participant: Yes New Discharge Prescriptions: No Action No Known Home Medications Discharge Medication List No Known Home Medications 02/28/21 [History] Follow up Appointment(s)/Referral(s): Cristino Telles MD [Primary Care Provider] - 1-2 days Discharge Disposition: OTHER INSTITUTION NOT DEFINED
== END 2021-03-01 21:29 | disposition short-term general hospital (02) | DRG 642 ==
LOC: EC 08:46 → 1SOBS 12:47 → 6NMEDSUR 17:30 → 4SSUR 22:21 → 3SCARD 23:22 → OBSVTOIN 03-01 07:17 → 2SICU 03-01 12:00
PROVIDERS: ADMIT Internal Medicine; ATTEND Internal Medicine
DX: E78.1 Pure hyperglyceridemia (principal); K85.80 Other acute pancreatitis without necrosis or infection; E87.2 Acidosis; E11.65 Type 2 diabetes mellitus with hyperglycemia; Z20.822 Contact with and (suspected) exposure to COVID-19; E83.51 Hypocalcemia; E86.0 Dehydration; E78.5 Hyperlipidemia, unspecified; E86.1 Hypovolemia; F17.210 Nicotine dependence, cigarettes, uncomplicated; Z71.6 Tobacco abuse counseling; Z87.11 Personal history of peptic ulcer disease; Z90.79 Acquired absence of other genital organ(s); Z87.438 Personal history of other diseases of male genital organs; Z98.890 Other specified postprocedural states; Z88.8 Allergy status to other drugs, medicaments and biological substances
CPT/HCPCS: 36415; 36600; 71045; 74018; 74177; 76705; 80048; 80053; 80061; 81001; 82150; 82330; 82805; 83036; 83605; 83690; 83721; 84132; 84478; 84484; 85025; 85610; 87636; 94760; 96361; 96374; 96375; 96376; 99285

== ENCOUNTER 2021-11-15 13:30 | Emergency (ER) | payer BC, OTHER ==
[2021-11-15 15:44] VITALS: RESP 18; TEMP 99.2
[2021-11-15 16:15] VITALS: BP 102/66; PULSE 100
[2021-11-15 16:35] LABS: Glucose,Whole Blood 121 mg/dL (75-99)
--- NOTE | 2021-11-15 16:42 | ED ---
General Adult HPI - General Chief complaint: Dizziness Stated complaint: Covid+, dizziness Time Seen by Provider: 11/15/21 15:55 Source: patient, family, RN notes reviewed, old records reviewed Mode of arrival: ambulatory Limitations: no limitations - History of Present Illness Initial comments: Patient is a 26-year-old male with past medical history remarkable for prior tracheostomy, triglyceride issue, as well as pancreas issues previously. Presents emergency Department following an episode of feeling lightheaded and became diaphoretic at work this morning. States that approximately 5:30 AM. Is currently 4:30 PM. He states his symptoms lasted only approximately 15 minutes at most. He has felt better since. Currently symptomatically. Has not had recurrent symptoms. Is currently Covid positive. Denies any shortness breath, chest pain. Denies any lower extremity swelling or edema. Is uncertain what caused his symptoms this morning, however has felt normal since. Was not vaccinated for COVID-19. Currently has no symptoms of the mild nasal congestion. His no other acute complaints at this time. - Related Data Home Medications Medication Instructions Recorded Confirmed Atorvastatin Calcium [Lipitor] 20 mg PO HS 11/15/21 11/15/21 Gemfibrozil [Lopid] 600 mg PO BID 11/15/21 11/15/21 Labetalol [Trandate] 200 mg PO BID 11/15/21 11/15/21 lisinopriL 10 mg PO DAILY 11/15/21 11/15/21 Allergies Allergy/AdvReac Type Severity Reaction Status Date / Time morphine AdvReac Vomiting Verified 11/15/21 17:19 prednisone AdvReac hyperglycem Verified 11/15/21 17:19 ia Review of Systems ROS Statement: Those systems with pertinent positive or pertinent negative responses have been documented in the HPI. Review of Systems: CONST: Denies fever EYES: Denies blurry vision ENT: Denies nasal congestion C/V: Denies Chest pain RESP: Denies shortness of breath GI: Denies abdominal pain : Denies dysuria SKIN: Denies rash. MSK: Denies joint pain. NEURO: Denies headache ROS Other: All systems not noted in ROS Statement are negative. Past Medical History Past Medical History: No Reported History, Hyperlipidemia Additional Past Medical History / Comment(s): peptic ulcer 07/18, pancreatitis/pancreatic failure, collapsed lung, tracheostomy History of Any Multi-Drug Resistant Organisms: None Reported Past Surgical History: Orthopedic Surgery Additional Past Surgical History / Comment(s): Left testical removed Past Anesthesia/Blood Transfusion Reactions: No Reported Reaction Past Psychological History: No Psychological Hx Reported Smoking Status: Current every day smoker Past Alcohol Use History: Occasional Past Drug Use History: Marijuana General Exam - General Exam Comments Initial Comments: General: Appears in no acute distress. HEAD: Normal with no signs of head trauma. EYES: PERRLA, EOMI, conjunctiva normal, no discharge. ENT: Hearing grossly intact, normal oropharynx. RESPIRATORY: Clear breath sounds bilaterally. No wheezes, rales, or rhonchi. No hypoxia. No increased work of breathing. C/V: Regular rate and rhythm. S1 and S2 auscultated, no edema, peripheral pulses 2+ and intact throughout ABD: Abd is soft, nontender, nondistended EXT: Normal range of motion, no obvious deformity SKIN: No rashes or lesions observed on exposed skin. NEURO: Alert and oriented x 4. Cranial nerves II-XII intact. No focal sensory or strength deficits. NIH 0. Cerebellar function is intact. Ambulates without difficulty. Limitations: no limitations Course Vital Signs 11/15/21 11/15/21 15:36 16:13 Temperature 99.2 F Pulse Rate 92 100 Respiratory 18 18 Rate Blood Pressure 103/61 102/66 O2 Sat by Pulse 96 96 Oximetry Medical Decision Making - Medical Decision Making Based on the patient's presentation and physical exam, he is currently asymptomatic following a. This morning when he felt lightheaded and became slightly sweaty. It has been resolved for over 12 hours. He has not had any further episodes. Feels normal now. Exam is completely normal. Vital signs are within normal limits. He is COVID-19 positive but does not meet criteria for monoclonal antibodies. I did discuss with him that I would like to obtain screening EKG as well as blood glucose level. He was in agreement this plan. Accu-Chek is within normal limits at 121.EKG shows no signs of acute ischemia and is otherwise within normal limits. On reevaluation patient remains asymptomatic. He would like to go home. I do believe this is reasonable. I did discuss quarentine with the patient. Patient will therefore be discharged home in good condition. I instructed the patient to follow up with their PCP in the next 3 days. I explained that the patient should return to the emergency department if they experience any worsening symptoms. Strict return precautions were discussed with the patient. The patient expressed understanding of these instructions. I answered all questions that the patient had. The patient was discharged home in good condition with their prescriptions and follow up information. - Lab Data Lab Results 11/15/21 Range/Units 16:33 POC Glucose (mg/dL) 121 H (75-99) mg/dL POC Glu [place] Mixer Operator ID Becca Lebron - EKG Data -: EKG Interpreted by Me EKG Comments: 12-lead Electrocardiogram Interpretation Note EKG was reviewed and interpreted by myself. 12-lead ECG performed at 1702 is interpreted by me as revealing mild sinus tachycardia at a rate of 105 beats per minute. Innis is normal. RI interval is 132 ms, QRS duration is 80 ms, QTc is 452 ms.. There were no ST or T wave abnormalities to suggest myocardial ischemia or injury. R wave progression across the precordium was satisfactory. By my interpretation this EKG is non-diagnostic for acute ischemia. Disposition Clinical Impression: COVID-19 virus infection Disposition: HOME SELF-CARE Condition: Good Instructions (If sedation given, give patient instructions): Coronavirus Disease 2019 (COVID-19), Dizziness (ED) Is patient prescribed a controlled substance at d/c from ED?: No Referrals: Cristino Telles MD [Primary Care Provider] - 1-2 days
== END 2021-11-15 17:35 | disposition home or self-care (01) ==
LOC: EC 13:30
DX: U07.1 COVID-19 (principal); F17.200 Nicotine dependence, unspecified, uncomplicated; E78.5 Hyperlipidemia, unspecified; Z88.5 Allergy status to narcotic agent; Z88.8 Allergy status to other drugs, medicaments and biological substances; Z79.899 Other long term (current) drug therapy
CPT/HCPCS: 36415; 93005; 99284

== ENCOUNTER 2022-01-17 14:18 | Emergency (ER) | payer BC, OTHER ==
[2022-01-17 14:39] VITALS: TEMP 98.1
[2022-01-17] MEDS ORDERED: SODIUM CHLORIDE 0.9% 1,000 ML IV STA (15:43)
[2022-01-17 16:15] LABS: Glucose,Whole Blood >600 mg/dL (75-99)
[2022-01-17 16:32] LABS: Basophils # (A) 0.1 k/uL (0-0.2); Basophils % (A) 2 %; Eosinophils # (A) 0.2 k/uL (0-0.7); Eosinophils % (A) 3 %; HCT 48.7 % (39.0-53.0); HGB 16.7 gm/dL (13.0-17.5); Lymphocytes # (A) 1.3 k/uL (1.0-4.8); Lymphocytes % (A) 17 %; MCHC 34.4 g/dL (31.0-37.0); MCV 87.2 fL (80.0-100.0); Mean Platelet Volume 9.2; Monocytes # (A) 0.5 k/uL (0-1.0); Monocytes % (A) 7 %; Neutrophils # (A) 4.9 k/uL (1.3-7.7); Neutrophils % (A) 68 %; Platelet Count 223 k/uL (150-450); RBC 5.58 m/uL (4.30-5.90); RDW 13.3 % (11.5-15.5); VBG PH 7.39 (7.31-7.41); WBC 7.2 k/uL (3.8-10.6)
[2022-01-17 16:35] LABS: Appearance,Urine Clear (Clear); Bilirubin,Urine Negative (Negative); Blood,Urine Negative (Negative); Color,Urine Colorless; Glucose,Urine (UA) 4+ (Negative); Ketones,Urine Negative (Negative); Leukocyte Esterase,Urine Negative (Negative); Nitrite,Urine Negative (Negative); PH, Urine 5.5 (5.0-8.0); Protein,Urine Trace (Negative); Specific Gravity,Urine 1.024 (1.001-1.035); Urobilinogen,Urine <2.0 mg/dL (<2.0)
[2022-01-17 16:41] LABS: ALT 43 U/L (4-49); AST 108 U/L (17-59); African American GFR (CKD) >90 (>60 ml/min/1.73 sqM); Alkaline Phosphatase 111 U/L (38-126); Anion Gap 15 mmol/L; Blood Urea Nitrogen 32 mg/dL (9-20); Carbon Dioxide 20 mmol/L (22-30); Chloride 89 mmol/L (98-107); Creatine Kinase 336 U/L (55-170); Non-African American GFR(CKD) >90 (>60 ml/min/1.73 sqM); Potassium 5.6 mmol/L (3.5-5.1); Sodium 124 mmol/L (137-145); Total Protein 8.6 g/dL (6.3-8.2)
--- NOTE | 2022-01-17 16:45 | ED ---
General Adult HPI - General Chief complaint: Recheck/Abnormal Lab/Rx Stated complaint: high blood sugar Time Seen by Provider: 01/17/22 15:02 Source: patient Mode of arrival: ambulatory Limitations: no limitations - History of Present Illness Initial comments: Patient is a 26-year-old male with past medical history of pancreatitis presenting for evaluation of elevated blood sugar. His PCP sent him here after obtaining a blood sugar of 513 in the office. He admits to some blurry vision that began yesterday, but otherwise no complaints. Patient began taking metformin and Lantus today, he states that is physician was unsure if he had true diabetes or if his elevated glucose was residual from his past episode of pancreatitis in February. Patient denies nausea, vomiting, abdominal pain, diarrhea, chest pain, shortness of breath, headache, palpiations, numbness, tingling, hearing changes, loss of consciousness. - Related Data Home Medications Medication Instructions Recorded Confirmed Atorvastatin Calcium [Lipitor] 20 mg PO HS 11/15/21 01/17/22 Gemfibrozil [Lopid] 600 mg PO BID-W/MEALS 11/15/21 01/17/22 Labetalol [Trandate] 100 mg PO DAILY 11/15/21 01/17/22 Insulin Glargine,Hum.rec.anlog 15 unit SQ HS 01/17/22 01/17/22 [Lantus Solostar Pen] Monroe-3 Fatty Acids/Fish Oil [Fish 1 cap PO DAILY 01/17/22 01/17/22 Oil 1,000 mg Softgel] lisinopriL [Zestril] 20 mg PO DAILY 01/17/22 01/17/22 metFORMIN HCL 1,000 mg PO BID 01/17/22 01/17/22 Allergies Allergy/AdvReac Type Severity Reaction Status Date / Time morphine AdvReac Vomiting Verified 01/17/22 17:39 prednisone AdvReac hyperglycem Verified 01/17/22 17:39 ia Review of Systems ROS Statement: Those systems with pertinent positive or pertinent negative responses have been documented in the HPI. ROS Other: All systems not noted in ROS Statement are negative. Past Medical History Past Medical History: No Reported History, Hyperlipidemia Additional Past Medical History / Comment(s): peptic ulcer 07/18, pancreatitis/pancreatic failure, collapsed lung, tracheostomy History of Any Multi-Drug Resistant Organisms: None Reported Past Surgical History: Orthopedic Surgery Additional Past Surgical History / Comment(s): Left testical removed Past Anesthesia/Blood Transfusion Reactions: No Reported Reaction Past Psychological History: No Psychological Hx Reported Smoking Status: Current every day smoker Past Alcohol Use History: Occasional Past Drug Use History: Marijuana General Exam Limitations: no limitations General appearance: alert, in no apparent distress Head exam: Present: atraumatic, normocephalic, normal inspection Eye exam: Present: normal appearance, PERRL, EOMI. Absent: scleral icterus, conjunctival injection, periorbital swelling ENT exam: Present: normal exam, mucous membranes moist Neck exam: Present: normal inspection Respiratory exam: Present: normal lung sounds bilaterally. Absent: respiratory distress, wheezes, rales, rhonchi, stridor Cardiovascular Exam: Present: regular rate, normal rhythm, normal heart sounds. Absent: systolic murmur, diastolic murmur, rubs, gallop, clicks GI/Abdominal exam: Present: soft, normal bowel sounds. Absent: distended, tenderness, guarding, rebound, rigid Neurological exam: Present: alert, oriented X3, CN II-XII intact Psychiatric exam: Present: normal affect, normal mood Skin exam: Present: warm, dry, intact, normal color. Absent: rash Course Vital Signs 01/17/22 01/17/22 14:35 21:16 Temperature 98.1 F Pulse Rate 112 H 103 H Respiratory 18 16 Rate Blood Pressure 149/97 136/90 O2 Sat by Pulse 98 94 L Oximetry Medical Decision Making - Medical Decision Making Patient is a 26-year-old male presenting for evaluation after in the office blood glucose resulted over 500. Patient states that he is experiencing some blurry vision that began a day ago, but otherwise has no complaints. No nausea, vomiting, abdominal pain, chest pain, shortness of breath, headache, change in mental status. Exam is within normal limits. Initial blood glucose is 636. Sodium of 124, potassium of 5.6. Urine is positive for glucose and trace protein, no ketones. Acetone is negative and venous blood gas pH is 7.39. Patient was given 2 L normal saline fluid bolus and 10 units of Humalog. Initial recheck of blood glucose is 387. Potassium rechecked 3-1/2 hours later is 4.3. She was given initial normal saline 500 mL bolus and 8 units of insulin. Blood glucose recheck was 375. Patient also brought to my attention that his left great toe has had some increasing pain in the last week. It started after he removed a hangnail and now with the medial edge is a bit red and swollen. On examination it appears positive for apparent need to ER. I attempted to drain the area with an 11 blade, no pus was expressed. I advised the patient to follow up with his PCP within the next 1-2 days, regarding blood glucose control and the pain of the great toe. He may take his Lantus tonight as prescribed. I educated him on return parameters. Report back to ER with any worsening symptoms or new onset alarming symptoms. I answered all questions. Patient conveyed verbal understanding and agreed to the plan. My attending is Dr. Quintanilla. - Lab Data Result diagrams: 01/17/22 16:28 01/17/22 20:00 Lab Results 01/17/22 01/17/22 01/17/22 Range/Units 16:14 16:28 16:28 WBC 7.2 (3.8-10.6) k/uL RBC 5.58 (4.30-5.90) m/uL Hgb 16.7 (13.0-17.5) gm/dL Hct 48.7 (39.0-53.0) % MCV 87.2 (80.0-100.0) fL MCH 30.0 (25.0-35.0) pg MCHC 34.4 (31.0-37.0) g/dL RDW 13.3 (11.5-15.5) % Plt Count 223 (150-450) k/uL MPV 9.2 Neutrophils % 68 % Lymphocytes % 17 % Monocytes % 7 % Eosinophils % 3 % Basophils % 2 % Neutrophils # 4.9 (1.3-7.7) k/uL Lymphocytes # 1.3 (1.0-4.8) k/uL Monocytes # 0.5 (0-1.0) k/uL Eosinophils # 0.2 (0-0.7) k/uL Basophils # 0.1 (0-0.2) k/uL VBG pH (7.31-7.41) VBG pCO2 (37-51) mmHg VBG HCO3 (24-28) mmol/L Sodium (137-145) mmol/L Potassium (3.5-5.1) mmol/L Chloride (98-107) mmol/L Carbon Dioxide (22-30) mmol/L Anion Gap mmol/L BUN (9-20) mg/dL Creatinine (0.66-1.25) mg/dL Est GFR (CKD-EPI)AfAm (>60 ml/min/1.73 sqM) Est GFR (CKD-EPI)NonAf (>60 ml/min/1.73 sqM) Glucose (74-99) mg/dL POC Glucose (mg/dL) >600 H (75-99) mg/dL POC Glu [employer] Clerk ID Angélica Sevilla Plasma Lactic Acid Dinesh (0.7-2.0) mmol/L Calcium (8.4-10.2) mg/dL Total Bilirubin (0.2-1.3) mg/dL AST (17-59) U/L ALT (4-49) U/L Alkaline Phosphatase (38-126) U/L Creatine Kinase (55-170) U/L Total Protein (6.3-8.2) g/dL Albumin (3.5-5.0) g/dL Urine Color Colorless Urine Appearance Clear (Clear) Urine pH 5.5 (5.0-8.0) Ur Specific [place] 1.024 (1.001-1.035) Urine Protein Trace H (Negative) Urine Glucose (UA) 4+ H (Negative) Urine Ketones Negative (Negative) Urine Blood Negative (Negative) Urine Nitrite Negative (Negative) Urine Bilirubin Negative (Negative) Urine Urobilinogen <2.0 (<2.0) mg/dL Ur Leukocyte Esterase Negative (Negative) Acetone, Qual (Negative) 01/17/22 01/17/22 01/17/22 Range/Units 16:28 16:28 16:28 WBC (3.8-10.6) k/uL RBC (4.30-5.90) m/uL Hgb (13.0-17.5) gm/dL Hct (39.0-53.0) % MCV (80.0-100.0) fL MCH (25.0-35.0) pg MCHC (31.0-37.0) g/dL RDW (11.5-15.5) % Plt Count (150-450) k/uL MPV Neutrophils % % Lymphocytes % % Monocytes % % Eosinophils % % Basophils % % Neutrophils # (1.3-7.7) k/uL Lymphocytes # (1.0-4.8) k/uL Monocytes # (0-1.0) k/uL Eosinophils # (0-0.7) k/uL Basophils # (0-0.2) k/uL VBG pH 7.39 (7.31-7.41) VBG pCO2 38 (37-51) mmHg VBG HCO3 22 L (24-28) mmol/L Sodium 124 L (137-145) mmol/L Potassium 5.6 H (3.5-5.1) mmol/L Chloride 89 L (98-107) mmol/L Carbon Dioxide 20 L (22-30) mmol/L Anion Gap 15 mmol/L BUN 32 H (9-20) mg/dL Creatinine 0.83 (0.66-1.25) mg/dL Est GFR (CKD-EPI)AfAm >90 (>60 ml/min/1.73 sqM) Est GFR (CKD-EPI)NonAf >90 (>60 ml/min/1.73 sqM) Glucose 636 H* (74-99) mg/dL POC Glucose (mg/dL) (75-99) mg/dL POC Glu [employer] Clerk ID Plasma Lactic Acid Dinesh 1.8 (0.7-2.0) mmol/L Calcium 10.0 (8.4-10.2) mg/dL Total Bilirubin 1.0 (0.2-1.3) mg/dL AST 108 H (17-59) U/L ALT 43 (4-49) U/L Alkaline Phosphatase 111 (38-126) U/L Creatine Kinase 336 H (55-170) U/L Total Protein 8.6 H (6.3-8.2) g/dL Albumin 5.0 (3.5-5.0) g/dL Urine Color Urine Appearance (Clear) Urine pH (5.0-8.0) Ur Specific [place] (1.001-1.035) Urine Protein (Negative) Urine Glucose (UA) (Negative) Urine Ketones (Negative) Urine Blood (Negative) Urine Nitrite (Negative) Urine Bilirubin (Negative) Urine Urobilinogen (<2.0) mg/dL Ur Leukocyte Esterase (Negative) Acetone, Qual Negative (Negative) 01/17/22 01/17/22 01/17/22 Range/Units 18:41 20:00 21:11 WBC (3.8-10.6) k/uL RBC (4.30-5.90) m/uL Hgb (13.0-17.5) gm/dL Hct (39.0-53.0) % MCV (80.0-100.0) fL MCH (25.0-35.0) pg MCHC (31.0-37.0) g/dL RDW (11.5-15.5) % Plt Count (150-450) k/uL MPV Neutrophils % % Lymphocytes % % Monocytes % % Eosinophils % % Basophils % % Neutrophils # (1.3-7.7) k/uL Lymphocytes # (1.0-4.8) k/uL Monocytes # (0-1.0) k/uL Eosinophils # (0-0.7) k/uL Basophils # (0-0.2) k/uL VBG pH (7.31-7.41) VBG pCO2 (37-51) mmHg VBG HCO3 (24-28) mmol/L Sodium (137-145) mmol/L Potassium 4.3 (3.5-5.1) mmol/L Chloride (98-107) mmol/L Carbon Dioxide (22-30) mmol/L Anion Gap mmol/L BUN (9-20) mg/dL Creatinine (0.66-1.25) mg/dL Est GFR (CKD-EPI)AfAm (>60 ml/min/1.73 sqM) Est GFR (CKD-EPI)NonAf (>60 ml/min/1.73 sqM) Glucose (74-99) mg/dL POC Glucose (mg/dL) 387 H 375 H (75-99) mg/dL POC Glu [employer] Clerk ID Wendy DavidAngélica Odom Plasma Lactic Acid Dinesh (0.7-2.0) mmol/L Calcium (8.4-10.2) mg/dL Total Bilirubin (0.2-1.3) mg/dL AST (17-59) U/L ALT (4-49) U/L Alkaline Phosphatase (38-126) U/L Creatine Kinase (55-170) U/L Total Protein (6.3-8.2) g/dL Albumin (3.5-5.0) g/dL Urine Color Urine Appearance (Clear) Urine pH (5.0-8.0) Ur Specific [place] (1.001-1.035) Urine Protein (Negative) Urine Glucose (UA) (Negative) Urine Ketones (Negative) Urine Blood (Negative) Urine Nitrite (Negative) Urine Bilirubin (Negative) Urine Urobilinogen (<2.0) mg/dL Ur Leukocyte Esterase (Negative) Acetone, Qual (Negative) Disposition Clinical Impression: Hyperglycemia, Hyponatremia, Hyperkalemia Disposition: HOME SELF-CARE Condition: Fair Instructions (If sedation given, give patient instructions): Diabetic Ketoacidosis (DC), Diabetic Hyperglycemia (ED) Additional Instructions: Follow-up with PCP in one to 2 days. Take metformin and Lantus as prescribed by PCP. Report back to ER with any worsening symptoms or new onset alarming symp toms, including but not limited to abdominal pain, chest pain, shortness of breath, nausea, vomiting, vision changes, headache, mental status changes Is patient prescribed a controlled substance at d/c from ED?: No Referrals: Cristino Telles MD [Primary Care Provider] - 1-2 days Time of Disposition: 21:24
[2022-01-17 16:54] LABS: Glucose 636 mg/dL (74-99)
[2022-01-17] MEDS ORDERED: INSULIN REGULAR 100 UNIT/ML VIAL (IV) IV ONE (17:38)
[2022-01-17] MEDS ORDERED: SODIUM CHLORIDE 0.9% 1,000 ML IV ONE (17:39)
[2022-01-17 18:42] LABS: Glucose,Whole Blood 387 mg/dL (75-99)
[2022-01-17] MEDS ORDERED: INSULIN ASPART (NovoLOG) 100 UNIT/ML VIAL SQ ONE (19:35)
[2022-01-17] MEDS ORDERED: SODIUM CHLORIDE 0.9% 500 ML 500 ML IV ONE (19:36)
[2022-01-17 21:12] LABS: Glucose,Whole Blood 375 mg/dL (75-99)
[2022-01-17 21:19] VITALS: BP 136/90; PULSE 103; RESP 16
== END 2022-01-17 21:50 | disposition home or self-care (01) ==
LOC: EC 14:18
DX: R73.9 Hyperglycemia, unspecified (principal); E87.1 Hypo-osmolality and hyponatremia; E87.5 Hyperkalemia; F17.200 Nicotine dependence, unspecified, uncomplicated; Z88.6 Allergy status to analgesic agent; Z88.8 Allergy status to other drugs, medicaments and biological substances
CPT/HCPCS: 36415; 80053; 81003; 82009; 82550; 82803; 83605; 84132; 85025; 96361; 96374; 99283

== ENCOUNTER 2024-04-04 08:49 | Day surgery (SDC) | payer BC, OTHER ==
[2024-04-04 09:20] VITALS: BP 144/94; PULSE 93; RESP 12; TEMP 97.4
[2024-04-04 09:27] LABS: Glucose,Whole Blood 128 mg/dL (70-110)
--- NOTE | 2024-04-04 10:19 | US ---
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 COMPARISON: None ATTENDING: Dr. Jared Vargas PROCEDURE: Informed consent was obtained. The risks and benefits of the procedure were discussed with the patien t. The site was marked. Timeout procedure was performed Ultrasound imaging of the thyroid demonstrates peripherally calcified right thyroid nodule The patient was prepped, draped in the usual sterile fashion, and locally anesthetized with 1% lidoca ine. Five fine needle aspiration were then performed with a 25 gauge needle. Samples were sent to [facility] pathology department for further analysis. Patient tolerated the procedure without incident and wa s sent home in stable condition. IMPRESSION: Successful ultrasound guided fine needle aspiration.
== END 2024-04-04 10:15 | disposition home or self-care (01) ==
LOC: RADPROMAIN 08:49
PROVIDERS: ATTEND Internal Medicine
DX: E04.1 Nontoxic single thyroid nodule (principal)
CPT/HCPCS: 10005; 88173; 88305

== ENCOUNTER 2024-04-10 08:12 | Emergency (ER) | payer OTHER ==
--- NOTE | 2024-04-10 08:37 | ED ---
Back Pain HPI - General Chief Complaint: Back Pain/Injury Stated Complaint: back pain Time Seen by Provider: 04/10/24 08:20 Source: patient, RN notes reviewed Mode of arrival: ambulatory Limitations: no limitations - History of Present Illness Initial Comments: This is a 28-year-old male who presents to the emergency department for back pain. States that he initially developed the pain 3 weeks ago, and it then started to improve. However over the last several days he exacerbated the injury by bending and lifting. Pain is in the right lower side of the back. Denies any loss of bowel/bladder control or saddle anesthesia. He tried taking Tylenol and some old tablets of tramadol, but did not have any relief in symptoms. - Related Data Home Medications Medication Instructions Recorded Confirmed Atorvastatin Calcium [Lipitor] 20 mg PO HS 11/15/21 04/04/24 Labetalol [Trandate] 100 mg PO DAILY 11/15/21 04/04/24 gemfibroziL [Lopid] 600 mg PO BID-W/MEALS 11/15/21 04/04/24 [place]-3 Fatty Acids/Fish Oil [Fish 1 cap PO DAILY 01/17/22 04/04/24 Oil 1,000 mg Softgel] lisinopriL [Zestril] 20 mg PO DAILY 01/17/22 04/04/24 metFORMIN HCL 1,000 mg PO BID 01/17/22 04/04/24 Insulin Regular, Human [NovoLIN R 15 units SQ ACHS 03/28/24 04/04/24 Flexpen] Niacin 1,000 mg PO DAILY 03/28/24 04/04/24 Previous Rx's Medication Instructions Recorded Lidocaine 5% Patch [Lidoderm 5% 1 patch TOPICAL DAILY PRN #30 patch 04/10/24 Patch] Naproxen Sodium 550 mg PO BID PRN #30 tablet 04/10/24 methocarbamoL [Robaxin-750] 1,500 mg PO TID PRN #30 tab 04/10/24 Allergies Allergy/AdvReac Type Severity Reaction Status Date / Time morphine AdvReac Vomiting Verified 04/10/24 08:20 prednisone AdvReac hyperglycem Verified 04/10/24 08:20 ia Review of Systems ROS Statement: Those systems with pertinent positive or pertinent negative responses have been documented in the HPI. ROS Other: All systems not noted in ROS Statement are negative. Past Medical History Past Medical History: Diabetes Mellitus, Hyperlipidemia, Hypertension, Thyroid Disorder Additional Past Medical History / Comment(s): peptic ulcer 07/18, in ICU on vent for 2 months with pancreatitis/pancreatic failure that lead to collapsed lung per pt/signifcant other. History of Any Multi-Drug Resistant Organisms: None Reported Past Surgical History: Orthopedic Surgery Additional Past Surgical History / Comment(s): Left testical removed, tracheostomy, ankle surgery Past Anesthesia/Blood Transfusion Reactions: No Reported Reaction Past Psychological History: No Psychological Hx Reported Smoking Status: Former smoker Past Alcohol Use History: None Reported Past Drug Use History: Marijuana - Past Family History Father Family Medical History: No Reported History General Exam Limitations: no limitations General appearance: alert, in no apparent distress Head exam: Present: atraumatic, normocephalic, normal inspection Respiratory exam: Present: normal lung sounds bilaterally. Absent: respiratory distress, wheezes, rales, rhonchi, stridor Cardiovascular Exam: Present: regular rate, normal rhythm, normal heart sounds. Absent: systolic murmur, diastolic murmur, rubs, gallop, clicks Back exam: Present: other (Right lower back) Neurological exam: Present: alert, oriented X3, CN II-XII intact Psychiatric exam: Present: normal affect, normal mood Skin exam: Present: warm, dry, intact, normal color. Absent: rash Course Vital Signs 04/10/24 04/10/24 08:18 11:06 Temperature 97.9 F 98.0 F Pulse Rate 100 89 Respiratory 18 17 Rate Blood Pressure 156/92 119/80 O2 Sat by Pulse 97 95 Oximetry Medical Decision Making - Medical Decision Making This is a 28 year old male who presents to the emergency department for back pain. Was pt. sent in by a medical professional or institution? @ -No Did you speak to anyone other than the patient for history? @ -No Did you review nursing and triage notes? @ -Yes, and I agree, it is accurate with regards to the patient's symptoms. Were old charts reviewed? @ -No Differential Diagnosis? @ -Differential Back Pain: Strain, zoster, cauda equina syndrome, epidural abscess, vertebral osteomyelitis, discitis, fracture, subluxation, disc herniation, DJD, spinal stenosis, dissection, AAA, pancreatitis, peptic ulcer disease, pyelonephritis, kidney stone, this is not meant to be an all-inclusive list. EKG interpreted by me (3pts min.)? @ -Not obtained X-rays interpreted by me (1pt min.)? @ -Not obtained CT interpreted by me (1pt min.)? @ -Not obtained U/S interpreted by me (1pt. min.)? @ -Not obtained What testing was considered but not performed? (CT, X-rays, U/S, labs)? Why? @ -Consideration of an x-ray of the lumbar spine, however this was avoided given the location of his pain and lack of injury. What meds were considered but not given? Why? @ -None Did you discuss the management of the patient with other professionals? @ -No Did you reconcile home meds? @ -No Was smoking cessation discussed for >3mins.? @ -No Was critical care preformed (if so, how long)? @ -No Were there social determinants of health that impacted care today? How? (Home lessness, low income, unemployed, alcoholism, drug addiction, transportation, low edu. Level, literacy, decrease access to med. care, [facility], rehab)? @ -No Was there de-escalation of care discussed even if they declined? (Discuss DNR or withdrawal of care, Hospice)? @ -No What co-morbidities impacted this encounter? (DM, HTN, Smoking, COPD, CAD, Ca ncer, CVA, Hep., AIDS, mental health diagnosis, sleep apnea, morbid obesity)? @ -None Was patient admitted / discharged? @ -Discharged. Given the location of his pain in the right lower back without any injuries, no imaging was obtained, as this is likely a muscular strain and x-rays would not likely be of any benefit. Pain was managed in the emergency department. Prescription for naproxen, Robaxin, and lidocaine patches provided with dosing instructions reviewed. Advised follow-up with his primary care provider for reevaluation. Undiagnosed new problem with uncertain prognosis? @ -None Drug Therapy requiring intensive monitoring for toxicity (Heparin, Nitro, Insulin, Cardizem)? @ -None Were any procedures done? @ -None Diagnosis/symptom? @ -Lumbar strain Acute, or Chronic, or Acute on Chronic? @ -Acute Uncomplicated (without systemic symptoms) or Complicated (systemic symptoms)? @ -Uncomplicated Side effects of treatment? @ -None Exacerbation, Progression, or Severe Exacerbation] @ -Not applicable Poses a threat to life or bodily function? @ -No Return precautions reviewed in depth, the patient is instructed to return to the emergency department with any new, worsening, or concerning symptoms. Patient verbalized understanding. This case was discussed in detail with the attending ED physician, Dr. Quintanilla. Presentation, findings, and treatment plan discussed in detail as well. Disposition Clinical Impression: Strain of lumbar region Disposition: HOME SELF-CARE Instructions (If sedation given, give patient instructions): Low Back Strain (ED), Acute Low Back Pain (ED) Additional Instructions: Return to the emergency department with any new, worsening, or concerning symptoms. Take the naproxen twice daily as needed with Tylenol for pain relief. Do not take any other anti-inflammatories such as ibuprofen with this. Take the Robaxin as 1 to 2 tablets up to 3-4 times daily, be aware that this may make you drowsy. You can also apply the lidocaine patches daily. Follow up with your primary care provider in 1-2 days. Prescriptions: Lidocaine 5% Patch [Lidoderm 5% Patch] 1 patch TOPICAL DAILY PRN #30 patch PRN Reason: Pain Naproxen Sodium 550 mg PO BID PRN #30 tablet PRN Reason: Pain methocarbamoL [Robaxin-750] 1,500 mg PO TID PRN #30 tab PRN Reason: Pain Is patient prescribed a controlled substance at d/c from ED?: No Referrals: Cristino Telles MD [Primary Care Provider] - 1-2 days Time of Disposition: 10:33
[2024-04-10] MEDS: KETOROLAC 15 MG/ML 1 ML VIAL IVP STA (09:09)
[2024-04-10] MEDS: DEXAMETHASONE SOD PHOSPHATE 10 MG/ML 1 ML VIAL IVP STA (09:09)
[2024-04-10] MEDS: ORPHENADRINE 30 MG/ML 2 ML VIAL IVP STA (09:12)
[2024-04-10] MEDS: LIDOCAINE 4% PATCH TOPICAL ONE (09:15)
[2024-04-10] MEDS: ONDANSETRON 4 MG/2 ML VIAL IVP STA (10:00)
[2024-04-10] MEDS: HYDROmorphone 1 MG/ML 1 ML SYRINGE IVP STA (10:00)
[2024-04-10] MEDS: ACET/COD 300 MG/30 MG STARTER PACK 6 TAB BTL PO STA (10:05)
[2024-04-10 11:06] VITALS: BP 119/80; PULSE 89; RESP 17; TEMP 98
== END 2024-04-10 11:06 | disposition home or self-care (01) ==
LOC: EC 08:12
DX: S39.012A Strain of muscle, fascia and tendon of lower back, initial encounter (principal); Z87.891 Personal history of nicotine dependence; Z88.5 Allergy status to narcotic agent; Z88.8 Allergy status to other drugs, medicaments and biological substances; X50.0XXA Overexertion from strenuous movement or load, initial encounter
CPT/HCPCS: 99283; 96374; 96375 ×4; J1100; J2360; J2405; J1170; J1885